=== PATIENT | male | born 1985 | race Caucasian/White ===

== ENCOUNTER 2023-04-20 22:07 | Inpatient (IN) | payer MEDICAID, OTHER, SELFPAY ==
[2023-04-20 16:45] VITALS: BMI 34.4
--- NOTE | 2023-04-20 16:46 | ED.GENMED ---
History of Present Illness
General
Chief Complaint: Skin Problem
Source: patient
Exam Limitations: none
Time Seen by Provider: 04/20/23 16:36
Travel History
Have you had any contact with someone who has COVID-19?: No
Do you have any symptoms of coronavirus? Fever > 100 degrees, chills, cough, shortness of breath, sore throat, loss of taste or smell, muscle aches, or headache?: No
History of Present Illness
History of Present Illness:
See MDM
Past History
Past History
ED Past Medical History: None
ED Past Surgical History: None
Social History
Tobacco: Non-smoker
Alcohol: None
Phy Exam
Physical Exam
Physical Exam:
See MDM
Course
Orders/Labs/Results
Orders:
Orders
04/20/23 16:45
Vancomycin [Vancocin] 2,000 mg 0.9% Sodium Chloride 500 ml [Nss] 500 ml IV NOW
US Periph Venous LOWER Ext RT Urgent
Comment:
Reason For Exam: Right calf pain and swelling
04/20/23 18:09
Complete Blood Count/With Diff Urgent
Comprehensive Metabolic Panel Urgent
Lactic Acid Q4H
Comment: CANCEL 2nd LACTIC ACID IF 1st LACTIC ACID IS LESS THAN 2
Blood Culture Q30M
DARRELL Source: Blood/Venous
Specimen Description:
Blood Culture Q30M
DARRELL Source: Blood/Venous
Specimen Description:
04/20/23 19:34
Ketorolac [Toradol] 30 mg IV NOW STA
Morphine Sulfate 4 mg IV NOW STA
04/20/23 20:45
Lactic Acid Q4H
Comment: CANCEL 2nd LACTIC ACID IF 1st LACTIC ACID IS LESS THAN 2
Abnormal Lab Results
04/20/23
18:09
WBC 11.5 H 10^3/uL
(4.8-10.8)
RBC 3.91 L 10^6/uL
(4.70-6.10)
Hgb 10.9 L g/dL
(13.0-18.0)
Hct 32.1 L %
(39.0-52.0)
Absolute Neuts (auto) 9.5 H 10^3/uL
(1.4-6.5)
Absolute Lymphs (auto) 0.8 L 10^3/uL
(1.2-3.4)
Absolute Monos (auto) 1.1 H 10^3/uL
(0.1-0.6)
Neutrophils % 82.7 H %
(42.2-75.2)
Lymphocytes % 7.3 L %
(20.5-51.1)
Monocytes % 9.5 H %
(1.7-9.3)
Sodium 134 L mmol/L
(135-145)
Chloride 96 L mmol/L
(98-107)
Glucose 103 H mg/dl
(70-99)
Alkaline Phosphatase 128 H U/L
(38-126)
04/20/23 18:09
04/20/23 18:09
Vital Signs
Initial and Last Documented VS:
Initial Vital Signs
Temp Pulse Resp Pulse Ox
98.6 F 99 18 97
04/20/23 16:38 04/20/23 16:38 04/20/23 16:38 04/20/23 16:38
Last Documented Vital Signs
Temp Pulse Resp Pulse Ox
98.6 F 99 18 97
04/20/23 16:38 04/20/23 16:38 04/20/23 16:38 04/20/23 16:38
MDM/Problems Addressed
Differential Diagnosis Includes:
HPI and MDM Narrative:
37-year-old male presenting with 3 days of worsening right leg swelling. Patient has a history of cellulitis that has required IV vancomycin in the past. He is from [facility]. He denies any trauma or injections in his
leg. He denies fever
On exam, there is significant cellulitis to right leg. Calf is tender. Distal extremity neurovascular intact. Will start IV vancomycin ultrasound rule out DVT
Physical exam
General: Well appearing and non-toxic
HEENT: protecting airway
Neck: appears supple
CV: No evidence of cyanosis
Resp: No accessory muscle use
Abd: Non-distended
Extremities: Circumferential swelling to right leg along tibia and calf. Pulses intact
Neuro: alert
Psych: Normal affect
Skin: Intact
Problems Addressed including Acute and Chronic Conditions affecting care:
1 cellulitis
Acuity: acute
Prognosis: unstable
Details: Patient started on IV vancomycin. Will obtain ultrasound rule DVT
Updates
Differential Diagnosis (but not limited to): Cellulitis, DVT
Testing considered: Soft tissue x-ray looking for gas
Drug therapy (if applicable): OTC meds, please see d/c instruction regarding Rx drugs
Amount and/or Complexity of Data Reviewed
Clinical info obtained from: Patient
External data reviewed: N/A
Labs I independently reviewed (but not limited to): Leukocystosos
Radiology: Ultrasound report reviewed
Pulse Ox: not hypoxic
EKG independently reviewed: N/A
Senior Power Scheduler: N/A
Critical Care: N/A
Risk of Complication:
Social Determinants of health: Good social support
Discussed with other providers: Hospitalist
Escalation of Care includes Admit/Obs: Given the significant cellulitis in short duration, will start IV vancomycin and admit
Occasional wrong word or 'sound a like' substitutions may have occurred due to the inherent limitations of voice recognition software. Read the chart carefully and recognize, using context, where substitutions have occurred.
*Critical Care Note
Total Time (30-74mins, 75-104mins- exclusive of procedures): Not Applicable
ED Attending Note
-
Portions of this chart may have been created with voice recognition software.� Occasional wrong word or��sound alike� substitutions may have occurred due to the inherent limitations of voice recognition software.
Discharge Plan
Departure
Patient Disposition: Admit
Date of Disposition: 04/20/23
Time of Disposition: 19:39
Admit to: Med/Surg
Presentation/result/management discussed w/ accepting MD/DO: Hospitalist
Discharge Problem:
Cellulitis
Prescriptions:
No Action
clonidine HCl 0.1 mg Tablet
0.1 mg PO UD
Rx Instructions:
ON 04/20/23-04/23/23 TABLE 0.1MG TID THEN ON 04/24/23-04/25/23 TABL 0.1MG BID THEN ON 04/26/23-04/27/23 TAKE 0.05MG BID
ondansetron HCl [Zofran] 4 mg Tablet
4 mg PO TIDPRN PRN (Reason: NAUSEA)
loperamide 2 mg Tablet
2 mg PO TIDPRN PRN (Reason: DIARRHEA)
acetaminophen-codeine 300-30 mg Tablet
2 tab PO UD
Rx Instructions:
ON 04/20/23-04/22/23 TAKE 2 TABLETS TID THEN ON 04/23/23-04/24/23 TAKE 2 TABLETS BID THEN ON 04/25/23-04/26/23 TAKE 1 TABLET BID THEN ON 04/27/23 TAKE 1 TABLE HS
Referrals:
[facility] [Family Provider] -
Interventions
Interventions:
*Risk Screen - Suicide Last Done: 04/20/23 16:45
*General Assessment Last Done: 04/20/23 16:41
*Neglect/Abuse Screening Last Done: 04/20/23 16:41
*ED COVID-19 Vaccine History Last Done: 04/20/23 16:41
ED-Skin Assessment Last Done: 04/20/23 16:45
[2023-04-20 18:16] LABS: % Basophils 0.2 % (0-2); % Immature Granulocytes 0.3 % (0-0.5); % Lymphocytes 7.3 % (20.5-51.1); % Monocytes 9.5 % (1.7-9.3); % Neutrophils 82.7 % (42.2-75.2); Absolute Lymphocytes 0.8 10^3/uL (1.2-3.4); Absolute Monocytes 1.1 10^3/uL (0.1-0.6); Absolute Neutrophils 9.5 10^3/uL (1.4-6.5); Hematocrit 32.1 % (39.0-52.0); Hemoglobin 10.9 g/dL (13.0-18.0); Mean Corpuscular Hgb 27.9 pg (27.0-31.0); Mean Corpuscular Volume 82.1 fL (80.0-94.0); Mean Platelet Volume 9.8 fL (7.4-10.4); Nucleated Red Blood Cells % 0 % (-); Platelet Count 257 10^3/uL (130-400); Red Blood Cell Count 3.91 10^6/uL (4.70-6.10); Red Cell Dist. Width 13.5 % (11.5-14.5); White Blood Cell Count 11.5 10^3/uL (4.8-10.8)
[2023-04-20] MEDS: VANCOCIN 540 MG IV (18:24)
[2023-04-20 18:29] LABS: Lactic Acid 0.9 mmol/L (0.7-2.0)
[2023-04-20 18:31] LABS: ALT (SGPT) 26 U/L (0-50); AST (SGOT) 36 U/L (17-59); Albumin 3.8 g/dl (3.5-5.0); Alkaline Phosphatase 128 U/L (38-126); Blood Urea Nitrogen 15 mg/dl (9-20); Calcium 9.5 mg/dl (8.4-10.2); Carbon Dioxide 29 mmol/L (22-30); Chloride 96 mmol/L (98-107); Estimated Creatinine Clearance > 125 ml/min; Glucose 103 mg/dl (70-99); Potassium 3.9 mmol/L (3.5-5.1); Sodium 134 mmol/L (135-145); Total Bilirubin 0.6 mg/dl (0.2-1.3); Total Protein 6.9 g/dl (6.3-8.2); eGFR > 60.00
[2023-04-20] MEDS: MORPHINE SULFATE 4 MG IV (19:59)
[2023-04-20] MEDS: TORADOL 30 MG IV (19:59)
--- NOTE | 2023-04-20 20:49 | HPS.HSE ---
Family Physician
-
Family Physician: Facility [facility]
Chief Complaint
-
RLE Pain and Redness
History of Present Illness
Patient is a 37y M with PMH significant for substance abuse who presents to ED complaining of RLE pain, swelling and redness. Patient states that his symptoms started yesterday AM and were noted upon waking. He is not aware of any injury,
trauma, etc. Patient was en route to an Urgent Care today when he was pulled over by police and apprehended on an outstanding warrant, They brought him to the ED for evaluation.
Patient states that he has a prior history of LLE cellulitis and required IV antibiotics at that time.
In the ED, patient is diaphoretic and tremulous. He admits to daily use of intranasal heroin. About 8 bags daily on average. His last use was this AM.
Medical History
Past Medical History
Past Medical History: Reports Other
Additional Past Medical History:
Substance Abuse
Past Surgical History: Reports Other
Additional Past Surgical History:
Inguinal Hernia Repair
Left Tib-Fib ORIF with Hardware
Social History
Tobacco: Non-smoker
Alcohol: None
Drug: Other (Intranasal heroin - last used 04/20 AM.)
Family History
Family History: Other (Mother: Brain Cancer Father: Pancreatic Cancer)
Allergies / Home Medications
Allergies reflects when Allergies were last updated in [employer].
Home Medications with original date entered in [employer]
Allergy/Medication List:
Allergies
Allergy/AdvReac Type Severity Reaction Status Date / Time
Penicillins Allergy Intermediate Shortness Verified 04/20/23 16:47
of Breath
Home Medications
acetaminophen 300 mg-codeine 30 mg tablet 2 tab PO UD 04/20/23
clonidine HCl 0.1 mg tablet 0.1 mg PO UD 04/20/23
loperamide 2 mg tablet 2 mg PO TIDPRN PRN DIARRHEA 04/20/23
ondansetron HCl 4 mg tablet 4 mg PO TIDPRN PRN NAUSEA 04/20/23
Review of Systems
-
History Source: Patient
A 12 point ROS was completed and negative except as noted: Yes
Constitutional: Reports Fatigue and Chills; Denies Fever
EENT: Denies Sore Throat
Respiratory: Denies Cough or Trouble Breathing
Cardiac: Denies Chest Pain or Palpitations
Abdomen/GI: Reports Nausea; Denies Abdominal Pain, Vomiting, Diarrhea, Constipated, Bloody Stools or Black Stools
: Denies Dysuria, Frequency or Flank Pain
Musculoskeletal: Reports Muscle Pain; Denies Edema
Skin: Reports Other (RLE redness, pain, swelling.)
Neurological: Reports Headache; Denies Dizzy
Physical Exam
Vital Signs
Vital Signs
Temp Pulse Resp Pulse Ox
98.6 F 99 18 97
04/20/23 16:38 04/20/23 16:38 04/20/23 16:38 04/20/23 16:38
Physical Exam
General: Other (37y M in moderate distress due to chills, tremulousness, withdrawal symptoms.)
HEENT: Moist mucous membranes and PERRLA
Respiratory: Clear; No Wheezes, Rales or Rhonchi
Cardiac: S1/S2 and Regular Rhythm; No Murmur
GI: Soft, Non Tender, Non Distended and Normal Bowel Sounds
Musculoskeletal: No Clubbing, No Cyanosis, No Edema and Other (RLE erythema, induration and increased warmth from the ankle to the knee. Pos tenderness without open wound / fluctuance / etc.)
Neuro: AO x 3
Laboratory Results
-
04/20/23 18:09
04/20/23 18:09
Laboratory Results
Lactic Acid 0.9 mmol/L (0.7-2.0) 04/20/23 18:09
Total Bilirubin 0.6 mg/dl (0.2-1.3) 04/20/23 18:09
AST 36 U/L (17-59) 04/20/23 18:09
ALT 26 U/L (0-50) 04/20/23 18:09
Alkaline Phosphatase 128 U/L (38-126) H 04/20/23 18:09
Impression/Plan
-
A/P: Patient is a 37y M with PMH significant for substance abuse who presents to ED c/o RLE pain, swelling and redness for about 2 days.
RLE Cellulitis
- Admit for further evaluation and treatment.
- Patient reports prior h/o cellulitis requiring IV abx.
- US neg for DVT but does show inguinal adenopathy c/w infection.
- ? if skin changes / infection are related to drug use / potential for xylazine in the heroin.
- No open wounds appreciated at present.
- Continue IV abx with Vanco for now.
- Follow for clinical improvement and transition to PO meds when appropriate.
Opioid Withdrawal
- Patient with daily use of intranasal heroin amounting to about 8 bags daily.
- Last use was this AM.
- Patient did receive a single dose of morphine in the ED; however, he is clinically in acute withdrawal at present.
- Begin opioid withdrawal treatment protocol with COWS monitoring / buprenorphine dosing / etc.
- Supportive care medications.
Normocytic Anemia
- Unknown etiology.
- No reported gross blood loss per patient.
- Check anemia studies and follow for changes.
DVT Prophylaxis: Lovenox
Code Status: Full
[2023-04-20] MEDS: SUBUTEX SL (21:11)
[2023-04-20] MEDS: SUBUTEX 8 MG SL ×2 (21:36→22:44)
[2023-04-20] MEDS: ATIVAN 1 MG IV ×2 (21:39→22:33)
[2023-04-20 21:42] VITALS: BP 146/87
[2023-04-20 22:14] VITALS: BP 157/85; BMI 33.3
[2023-04-20] MEDS: NSS 1000 IV (22:33)
[2023-04-20 23:01] LABS: Reticulocyte Count 1.2 % (0.4-2.8)
--- NOTE | 2023-04-20 23:04 | PTCARENOTE ---
pt admitted from ED- pt is AAOx3- actively withdrawing from heroin, COWS score 10- PRN meds given per MAR. pt with tremors- restless, sweating. pt is cooperative with care. NSR/ST on the monitor. 98% RA. pt aware of the needs for a urine specimen-
urinal provided. IV fluids hung and infusing to right midline. two guards at bedside. pt oriented to room, call moore within reach, care ongoing.
[2023-04-20] MEDS: CATAPRES 0.100000000000000006 MG PO (23:10)
--- NOTE | 2023-04-20 23:10 | PHA.VAN.IN ---
Assessment
- Assessment
Renal Function: Unknown baseline
Maximum Temperature: 99.4
AUC Dosing Plan
- Dosing Variables
Dosing Weight (kg): 114
Dosing CrCl (ml/min): 125
Vd coefficient (L/kg): 0.6
- Empiric Dosing
Initial / Loading Dose: 2000mg 04/20 18:24
Maintenance Regimen: 1250 mg q8h
Estimated AUC (mcg*h/mL): 548
Estimated Peak (mcg*h/mL): 31.6
Estimated Trough (mcg/ml): 15.6
Estimated Half Life (H): 6.4
- Monitoring
No levels ordered at this time: consider in the next couple days
Pharmacokinetics Vancomycin I
- -
Patient Age: 37
Patient Sex: Male
Vancomycin Day #: 1
Indication: Skin And Soft Tissue
Requesting Provider: Dr Ji
Pertinent Antimicrobial Allergies:
Penicillins Allergy (Intermediate, Verified 04/20/23 16:47) Shortness of Breath
Height / Weight:
Height 6 ft 1 in
Actual Weight 114.4 kg
Pertinent Past Medical History: h/o ingesting (snorting) ilicit opioids and xylazine; BMI 33
- Vital Signs / Lab Results
Temp Pulse Resp BP Pulse Ox
99.4 F 94 14 157/85 98
04/20/23 22:15 04/20/23 22:45 04/20/23 22:45 04/20/23 22:14 04/20/23 22:55
Lab Results - Hematology
04/20/23
18:09
WBC 11.5 H
Lab Results - Chemistry
04/20/23
18:09
BUN 15
Creatinine 0.7
Estimated Creat Clear > 125
Albumin 3.8
04/20/23 04/20/23
18:09 22:21
Lactic Acid 0.9 Cancelled
[2023-04-20 23:32] LABS: Creatine Phosphokinase 268 U/L (55-170); Iron 29 ug/dl (49-181)
[2023-04-20 23:41] LABS: Percent Saturation 9 % (20-50); Total Iron Binding Capacity 313 ug/dl (261-462)
[2023-04-21] VITALS (12 sets, daily range): BP systolic 132–171; BP diastolic 70–101
[2023-04-21 00:44] LABS: Vitamin B12 633 pg/ml (239-931)
[2023-04-21] MEDS: ATIVAN 1 MG IV ×4 (03:06→23:32)
[2023-04-21] MEDS: TORADOL 15 MG IV (03:10)
[2023-04-21] MEDS: NSS 1000 IV ×2 (05:28→14:25)
[2023-04-21] MEDS: VANCOCIN 275 MG IV ×3 (05:28→22:32)
[2023-04-21] MEDS: CATAPRES 0.100000000000000006 MG PO ×3 (05:28→17:19)
[2023-04-21] MEDS: SUBUTEX 8 MG SL (05:33)
[2023-04-21 05:45] LABS: Hematocrit 34.2 % (39.0-52.0); Hemoglobin 11.4 g/dL (13.0-18.0); Mean Corp Hgb Conc. 33.3 g/dL (33.0-37.0); Mean Corpuscular Hgb 27.8 pg (27.0-31.0); Mean Corpuscular Volume 83.4 fL (80.0-94.0); Mean Platelet Volume 10.4 fL (7.4-10.4); Platelet Count 283 10^3/uL (130-400); Red Cell Dist. Width 13.4 % (11.5-14.5); White Blood Cell Count 9.7 10^3/uL (4.8-10.8)
[2023-04-21 06:05] LABS: ALT (SGPT) 29 U/L (0-50); AST (SGOT) 44 U/L (17-59); Albumin 3.9 g/dl (3.5-5.0); Alkaline Phosphatase 130 U/L (38-126); Blood Urea Nitrogen 16 mg/dl (9-20); Calcium 9.1 mg/dl (8.4-10.2); Carbon Dioxide 24 mmol/L (22-30); Chloride 103 mmol/L (98-107); Direct Bilirubin 0.5 mg/dl (0.0-0.4); Estimated Creatinine Clearance > 125 ml/min; Glucose 102 mg/dl (70-99); Potassium 3.7 mmol/L (3.5-5.1); Sodium 135 mmol/L (135-145); Total Bilirubin 0.7 mg/dl (0.2-1.3); Total Protein 6.9 g/dl (6.3-8.2); eGFR > 60.00
--- NOTE | 2023-04-21 06:10 | PTCARENOTE ---
pt with increasing COWS score overnight- 10-12. given PRN meds. pt with increasing discomfort to right leg- given IV toradol, pt noted to be sleeping after administration. care ongoing.
--- NOTE | 2023-04-21 08:26 | PHA.VAN.FU ---
Vancomycin Assessment / Plan
- Assessment
Renal Function: Stable
WBC's are: Trending Down
In the past 24 hrs, patient has been: Afebrile
- Dosing Plan
Continue: 1250MG Q8H
- Monitoring Plan
No level(s) ordered at this time: CONSIDER FOR TOMORROW
- Follow Up
Pharmacy will continue to follow.
Vancomycin Follow UP
- -
Patient Age: 37
Patient Sex: Male
Vancomycin Day #: 2
Indication: Skin And Soft Tissue
Requesting Provider: Dr Ji
Pertinent Antimicrobial Allergies:
Penicillins Allergy (Intermediate, Verified 04/20/23 16:47) Shortness of Breath
Height / Weight:
Height 6 ft 1 in
Actual Weight 114.4 kg
Pertinent Past Medical History: h/o ingesting (snorting) ilicit opioids and xylazine; BMI 33
- Vital Signs / Lab Results
Temp Pulse Resp BP Pulse Ox
98.2 F 67 16 155/98 97
04/21/23 07:46 04/21/23 06:00 04/21/23 06:00 04/21/23 06:00 04/21/23 00:04
Lab Results - Hematology
04/20/23 04/21/23
18:09 05:27
WBC 11.5 H 9.7
Lab Results - Chemistry
04/20/23 04/21/23
18:09 05:27
BUN 15 16
Creatinine 0.7 0.8
Estimated Creat Clear > 125 > 125
Albumin 3.8 3.9
04/20/23 04/20/23
18:09 22:21
Lactic Acid 0.9 Cancelled
[2023-04-21] MEDS: ZOFRAN 4 MG IV ×3 (09:10→23:34)
--- NOTE | 2023-04-21 12:35 | PTCARENOTE ---
Pt incontinent of large amount of loose stool x2. Hygiene care provided. Pt states that when he is asleep he does not know he has to go. vital signs stable. Refuses to keep pulse ox sensor on. SpO2 has been 98% on RA during spot checks.
--- NOTE | 2023-04-21 13:50 | W.PN.HOSP.TC ---
Today's Communication/Plan
-
Continue IV abx.
Eval leg daily for improvement/worsening
Assessment / Plan
Assessment / Plan
37y M with PMH significant for substance abuse who presents to ED c/o RLE pain, swelling and redness for about 2 days.
1. RLE Cellulitis - continues
�- Patient reports prior h/o cellulitis requiring IV abx.
�- US neg for DVT but does show inguinal adenopathy c/w infection.
�- skin changes / infection are related to drug use / there is potential for xylazine in the heroin.
�- No open wounds appreciated at present.
� - Continue IV abx with Vanco for now.
� - Follow for clinical improvement and transition to PO meds when appropriate.
2. Opioid Withdrawal - significant issue right now
�- Patient with daily use of intranasal heroin amounting to about 8 bags daily.
�- Last use was yesterday AM.
�- Patient did receive a single dose of morphine in the ED; however, he is clinically in acute withdrawal at present.
� - Begin opioid withdrawal treatment protocol with COWS monitoring / buprenorphine dosing /
� - Supportive care medications.
3. Normocytic Anemia
�- Unknown etiology.
�- No reported gross blood loss per patient.
� - follow up anemia studies.
DVT Prophylaxis:� Lovenox
Code Status:� Full
Anticipated Discharge: > 48 hours
Subjective/Interval History
-
Date of Service: April 21, 2023
states: 'Everything feels bad'
Objective Data
-
Labs:
Laboratory Results
04/21/23
05:27
WBC 9.7
Hgb 11.4 L
Hct 34.2 L
Plt Count 283
Sodium 135
Potassium 3.7
Chloride 103
Carbon Dioxide 24
BUN 16
Creatinine 0.8
Glucose 102 H
Calcium 9.1
Total Bilirubin 0.7
AST 44
ALT 29
Alkaline Phosphatase 130 H
Vital Signs:
Vital Signs
Temp Pulse Resp BP Pulse Ox
99.6 F 76 20 144/92 98
04/21/23 11:25 04/21/23 12:13 04/21/23 12:03 04/21/23 12:13 04/21/23 11:20
I&O
04/20/23 04/21/23 04/22/23
06:59 06:59 06:59
Intake Total 1275 / 1275
Balance 1275 / 1275
Review of Systems
-
History Source: Patient (sleeping, not very conversant.)
All other systems: Reviewed and negative
Physical Exam
-
General: Well Developed, Well Nourished and Obese
HEENT: Normocephalic, Moist Mucous Membranes, Nose Appears Normal and Ears Appear Normal
Respiratory: Clear to Auscultation
Cardiac: Regular Rhythm and S1/S2
GI: Soft, Nontender and Nondistended
Musculoskeletal: No Clubbing, No Cyanosis, Edema, Left Upper Extrem and Edema, Right Lower Extrem
Skin: Warm, Dry and Rash (red LE)
Neuro: Awake
Psych: Calm
Data Reviewed
-
Labs: Labs Reviewed by me
[2023-04-21] MEDS: LOVENOX 40 MG SC (17:19)
[2023-04-21] MEDS: TYLENOL 650 MG PO (20:16)
[2023-04-21] MEDS: ZANAFLEX 2 MG PO (20:20)
--- NOTE | 2023-04-21 23:30 | PTCARENOTE ---
report received. pt aaox3 but lethargic. nsr. vss. ivf infusing. cows 14. ativan given and zofran given for w/d symptoms. vanco infusing. correction officers present. pt shackled to bed. Will monitor.
[2023-04-21] MEDS: CATAPRES PO (23:38)
[2023-04-22] VITALS (8 sets, daily range): BP systolic 133–161; BP diastolic 52–100
[2023-04-22] MEDS: NSS IV (03:43)
[2023-04-22] MEDS: NSS 1000 IV (03:44)
[2023-04-22 04:05] LABS: Hematocrit 32.2 % (39.0-52.0); Hemoglobin 10.8 g/dL (13.0-18.0); Mean Corp Hgb Conc. 33.5 g/dL (33.0-37.0); Mean Corpuscular Hgb 28.1 pg (27.0-31.0); Mean Corpuscular Volume 83.6 fL (80.0-94.0); Mean Platelet Volume 10.7 fL (7.4-10.4); Platelet Count 262 10^3/uL (130-400); Red Blood Cell Count 3.85 10^6/uL (4.70-6.10); Red Cell Dist. Width 13.2 % (11.5-14.5); White Blood Cell Count 11.8 10^3/uL (4.8-10.8)
[2023-04-22 04:12] LABS: Blood Urea Nitrogen 17 mg/dl (9-20); Calcium 8.4 mg/dl (8.4-10.2); Carbon Dioxide 24 mmol/L (22-30); Chloride 100 mmol/L (98-107); Estimated Creatinine Clearance > 125 ml/min; Glucose 105 mg/dl (70-99); Potassium 3.2 mmol/L (3.5-5.1); Sodium 134 mmol/L (135-145); eGFR > 60.00
[2023-04-22] MEDS: CATAPRES PO ×3 (06:13→17:04)
[2023-04-22] MEDS: VANCOCIN 275 MG IV ×2 (06:13→14:40)
[2023-04-22] MEDS: SUBUTEX 16 MG SL (06:19)
[2023-04-22] MEDS: LR 1000 IV (10:25)
[2023-04-22] MEDS: KCL ELIXIR 40 MEQ PO (10:25)
[2023-04-22] MEDS: ZOFRAN 4 MG IV ×2 (10:26→20:41)
--- NOTE | 2023-04-22 15:45 | CM ---
Patient from [facility] with Dx RLE Cellulitis, Opioid Withdrawal, Normocytic Anemia. COWS. Receiving Subutex, IV cefazolin.
CM continuing to follow for d/c needs.
The nurse will need to call report at discharge to [facility] Nurse at [phone], fax [phone].
Plan return to [facility] with guards when medically ready.
--- NOTE | 2023-04-22 15:46 | W.PN.HOSP.TC ---
Today's Communication/Plan
-
switch to cefazolin
supportive care for withdrawal
Assessment / Plan
Assessment / Plan
37y M with PMH significant for substance abuse who presents to ED c/o RLE pain, swelling and redness for about 2 days.
1. RLE Cellulitis - continues
�- Patient reports prior h/o cellulitis requiring IV abx.
�- US neg for DVT but does show inguinal adenopathy c/w infection.
�- denies IV drug abuse.
�- No open wounds appreciated at present.
�-Switch to Cefazolin - monitor
2. Opioid Withdrawal - significant issue right now
�- Patient with daily use of intranasal heroin amounting to about 8 bags daily.
�- Patient did receive a single dose of morphine in the ED; however, he is clinically in acute withdrawal at present.
�- Begin opioid withdrawal treatment protocol with COWS monitoring / buprenorphine dosing /
�- Supportive care medications.
3. Normocytic Anemia
�- Unknown etiology.
�- No reported gross blood loss per patient.
�- follow up anemia studies.
#Hyponatremia, mild
-monitor
#Hypokalemia
-monitor and replete
DVT Prophylaxis:� Lovenox
Code Status:� Full
Anticipated Discharge: 24 - 48 hours
Subjective/Interval History
-
Date of Service: April 22, 2023
cellulitis improving
withdrawing
Objective Data
-
Labs:
Laboratory Results
04/22/23
03:36
WBC 11.8 H
Hgb 10.8 L
Hct 32.2 L
Plt Count 262
Sodium 134 L
Potassium 3.2 L
Chloride 100
Carbon Dioxide 24
BUN 17
Creatinine 0.6 L
Glucose 105 H
Calcium 8.4
Vital Signs:
Vital Signs
Temp Pulse Resp BP Pulse Ox
98.6 F 63 17 147/89 88
04/22/23 11:20 04/22/23 12:00 04/22/23 12:00 04/22/23 12:00 04/22/23 06:00
I&O
04/21/23 04/22/23 04/23/23
06:59 06:59 06:59
Intake Total 1275 / 1275 1000 / 1000
Output Total 650 / 650 1000 / 1000
Balance 1275 / 1275 -650 / -650 0 / 0
Review of Systems
-
History Source: Patient (sleeping, not very conversant.)
All other systems: Reviewed and negative
Physical Exam
-
General: Well Developed, Well Nourished and Obese
HEENT: Normocephalic, Moist Mucous Membranes, Nose Appears Normal and Ears Appear Normal
Respiratory: Clear to Auscultation
Cardiac: Regular Rhythm and S1/S2
GI: Soft, Nontender and Nondistended
Musculoskeletal: No Clubbing, No Cyanosis, Edema, Left Upper Extrem and Edema, Right Lower Extrem
Skin: Warm, Dry and Rash (red LE)
Neuro: Awake
Psych: Calm
Data Reviewed
-
Labs: Labs Reviewed by me
[2023-04-22] MEDS: LOVENOX SC ×2 (17:05→17:09)
--- NOTE | 2023-04-22 17:32 | PTCARENOTE ---
pt being transferred to room 330 med surg. report given to Christine. pt refused catapress and lovenox. explained risk of dvt if pt doesnt take lovenox.
[2023-04-22] MEDS: ANCEF 10 IV (21:23)
[2023-04-22] MEDS: CATAPRES 0.100000000000000006 MG PO (23:22)
[2023-04-23 05:11] LABS: Hematocrit 32.5 % (39.0-52.0); Hemoglobin 11.3 g/dL (13.0-18.0); Mean Corp Hgb Conc. 34.8 g/dL (33.0-37.0); Mean Corpuscular Hgb 28.1 pg (27.0-31.0); Mean Corpuscular Volume 80.8 fL (80.0-94.0); Mean Platelet Volume 10.2 fL (7.4-10.4); Platelet Count 291 10^3/uL (130-400); Red Blood Cell Count 4.02 10^6/uL (4.70-6.10); Red Cell Dist. Width 13.2 % (11.5-14.5); White Blood Cell Count 14.9 10^3/uL (4.8-10.8)
[2023-04-23 05:41] LABS: Blood Urea Nitrogen 15 mg/dl (9-20); Carbon Dioxide 28 mmol/L (22-30); Chloride 96 mmol/L (98-107); Estimated Creatinine Clearance > 125 ml/min; Glucose 103 mg/dl (70-99); Potassium 3.5 mmol/L (3.5-5.1); Sodium 133 mmol/L (135-145); eGFR > 60.00
[2023-04-23] MEDS: ANCEF 10 IV ×3 (06:27→21:06)
[2023-04-23] MEDS: CATAPRES 0.100000000000000006 MG PO ×4 (06:33→23:09)
[2023-04-23 07:21] VITALS: BP 163/99
[2023-04-23] MEDS: SUBUTEX 16 MG SL (07:49)
--- NOTE | 2023-04-23 13:14 | PN.CDI ---
CDI
- -
CDI:
Physician Documentation Request
Admit Date: 04/20/23 22:07
Dear Doctor Paulie,
Please review the following and provide your response in the progress notes.
Clinical Indicators:
Pt admitted with RLE cellulitis/ Opioid Withdrawal
Documented per H&P, ' Reports Fatigue and Chills; Denies Fever...'
On admission HR 112, RR 27 , Tmax 100.1
04/20/23 04/22/23 04/23/23
18:09 03:36 04:53
WBC 11.5 H 11.8 H 14.9 H
Please clarify which of the following most accurately describes the status of the patient's infection:
Sepsis-POA
- Systemic manifestations of infection, with 2 or more SIRS criteria which include:
- Fever >100.4 degrees F or hypothermia < 96.8 degrees F
- Leukocytosis - WBC > 12,000 or leukopenia - WBC < 4,000 or > 10% bands
- Tachycardia > 90 beats per minute
- Tachypnea - RR > 20 breaths per minute or PaCO2 , 32mmHg
Source: Merck Manual 2012
Sepsis Not POA
RLE cellulitis only , Without Systemic Illness
Other
Use of terms such as suspected, likely, concern for, or probable (associated with a specific diagnosis that is being evaluated, monitored, or treated as if it exists) are acceptable and can be coded in the inpatient setting, when documented at the
time of discharge.
Thank you,
Trudy Alexander RN
CDI Specialist
[facility]
Please use your independent medical judgment in providing your response.
--- NOTE | 2023-04-23 13:53 | W.PN.HOSP.TC ---
Today's Communication/Plan
-
abx
supportive care
f/u wbc, fever curve
Assessment / Plan
Assessment / Plan
37y M with PMH significant for substance abuse who presents to ED c/o RLE pain, swelling and redness for about 2 days.
# RLE Cellulitis - continues
�- Patient reports prior h/o cellulitis requiring IV abx.
�- US neg for DVT but does show inguinal adenopathy c/w infection.
�- denies IV drug abuse.
�- No open wounds appreciated at present.
�-Switch to Cefazolin - monitor
#Leukocytosis
� Most likely reactive secondary to withdrawal, doubt due to cellulitis as cellulitis appears to be improving on antibiotics
� Continue to monitor fever, WBC
# Opioid Withdrawal - significant issue right now
�- Patient with daily use of intranasal heroin amounting to about 8 bags daily.
�- Patient did receive a single dose of morphine in the ED; however, he is clinically in acute withdrawal at present.
�- Begin opioid withdrawal treatment protocol with COWS monitoring / buprenorphine dosing /
�- Supportive care medications.
# Normocytic Anemia
�- Unknown etiology.
�- No reported gross blood loss per patient.
�- follow up anemia studies.
#Hyponatremia, mild
-monitor
#Hypokalemia
-monitor and replete
DVT Prophylaxis:� Lovenox
Code Status:� Full
Anticipated Discharge: Within 24 hours
Subjective/Interval History
-
Date of Service: April 23, 2023
Ongoing improvement cellulitis, no acute events overnight
Objective Data
-
Labs:
Laboratory Results
04/23/23
04:53
WBC 14.9 H
Hgb 11.3 L
Hct 32.5 L
Plt Count 291
Sodium 133 L
Potassium 3.5
Chloride 96 L
Carbon Dioxide 28
BUN 15
Creatinine 0.7
Glucose 103 H
Calcium 9.0
Vital Signs:
Vital Signs
Temp Pulse Resp BP Pulse Ox
97.2 F 66 16 161/96 96
04/23/23 07:21 04/23/23 07:21 04/23/23 07:21 04/23/23 13:00 04/23/23 10:33
I&O
04/22/23 04/23/23 04/24/23
06:59 06:59 06:59
Intake Total 2230 / 2230
Output Total 650 / 650 2350 / 2350
Balance -650 / -650 -120 / -120
Review of Systems
-
History Source: Patient (sleeping, not very conversant.)
All other systems: Reviewed and negative
Data Reviewed
-
Labs: Labs Reviewed by me
[2023-04-23 15:53] VITALS: BP 146/89
[2023-04-23] MEDS: LOVENOX SC (18:04)
[2023-04-23 23:06] VITALS: BP 149/90
[2023-04-24 05:20] LABS: Hematocrit 32.6 % (39.0-52.0); Hemoglobin 11.1 g/dL (13.0-18.0); Mean Corpuscular Hgb 27.3 pg (27.0-31.0); Mean Corpuscular Volume 80.3 fL (80.0-94.0); Platelet Count 310 10^3/uL (130-400); Red Blood Cell Count 4.06 10^6/uL (4.70-6.10); Red Cell Dist. Width 13.2 % (11.5-14.5); White Blood Cell Count 15.7 10^3/uL (4.8-10.8)
[2023-04-24] MEDS: ANCEF 10 IV (05:21)
[2023-04-24] MEDS: CATAPRES PO ×3 (05:28→17:32)
[2023-04-24 05:58] LABS: Blood Urea Nitrogen 21 mg/dl (9-20); Calcium 8.9 mg/dl (8.4-10.2); Carbon Dioxide 27 mmol/L (22-30); Chloride 95 mmol/L (98-107); Estimated Creatinine Clearance > 125 ml/min; Glucose 98 mg/dl (70-99); Potassium 3.5 mmol/L (3.5-5.1); Sodium 133 mmol/L (135-145); eGFR > 60.00
[2023-04-24 07:00] VITALS: BP 157/94
[2023-04-24] MEDS: SUBUTEX 16 MG SL (08:39)
--- NOTE | 2023-04-24 11:40 | W.PN.HOSP.TC ---
Addendum entered and electronically signed by Anatoliy Apodaca MD 04/26/23 16:00:
Sepsis-POA
Addendum entered and electronically signed by Anatoliy Apodaca MD 04/24/23 17:39:
Keflex 500mg qid*
[id number]
Original Note:
Today's Communication/Plan
-
Keflex 500 mg 4 times daily to complete 10-day course total, additional 8 days should be provided
Continue Subutex, as per physician outpatient
Clonidine weaning
Tizanidine as needed
Assessment / Plan
Assessment / Plan
37y M with PMH significant for substance abuse who presents to ED c/o RLE pain, swelling and redness for about 2 days.
# RLE Cellulitis -improving
�- Patient reports prior h/o cellulitis requiring IV abx.
�- US neg for DVT but does show inguinal adenopathy c/w infection.
�- denies IV drug abuse.
�- No open wounds appreciated at present.
�-Switch to Cefazolin - monitor�improving, switch to Keflex 5 mg 4 times daily for additional 8 days to complete 10-day course of antibiotics
#Leukocytosis
� Most likely reactive secondary to withdrawal, doubt due to cellulitis as cellulitis appears to be improving on antibiotics
� Continue to monitor fever, WBC - F/u CBC in 3 days
# Opioid Withdrawal - significant issue right now
�- Patient with daily use of intranasal heroin amounting to about 8 bags daily.
�- Patient did receive a single dose of morphine in the ED; however, .
�- Begin opioid withdrawal treatment protocol with COWS monitoring / buprenorphine dosing - cont Subutex outpatient
�- Supportive care medications.
-tinazidine, clonidine
# Normocytic Anemia
�- Unknown etiology.
�- No reported gross blood loss per patient.
�- follow up anemia studies.
#Hypertension
-2/2 to withdrawal
-ctm
#Hyponatremia, mild
-monitor
-f/u bmp outpatient
#Hypokalemia
-monitor and replete
DVT Prophylaxis:� Lovenox
Code Status:� Full
More than 30 minutes spent in discharge including
Final examination of the patient
Summarizing hospital stay
Instructions for continuing care to all relevant caregivers
Preparation of discharge records, prescriptions, and referral forms
Total time spent (35 in minutes):
Anticipated Discharge: Today
Subjective/Interval History
-
Date of Service: April 24, 2023
Cellulitis improving
Objective Data
-
Labs:
Laboratory Results
04/24/23
04:53
WBC 15.7 H
Hgb 11.1 L
Hct 32.6 L
Plt Count 310
Sodium 133 L
Potassium 3.5
Chloride 95 L
Carbon Dioxide 27
BUN 21 H
Creatinine 0.6 L
Glucose 98
Calcium 8.9
Vital Signs:
Vital Signs
Temp Pulse Resp BP Pulse Ox
99.2 F 72 17 157/94 97
04/24/23 07:00 04/24/23 07:00 04/24/23 07:00 04/24/23 07:00 04/24/23 07:00
I&O
04/23/23 04/24/23 04/25/23
06:59 06:59 06:59
Intake Total 2230 / 2230 1200 / 1200
Output Total 2350 / 2350 2650 / 2650
Balance -120 / -120 -1450 / -1450
Review of Systems
-
History Source: Patient ( not very conversant.)
All other systems: Not reviewed unless documented
Data Reviewed
-
Ultrasound: Image personally visualized and interpreted and Report Reviewed by me
Labs: Labs Reviewed by me
--- NOTE | 2023-04-24 11:45 | W.DS.TRANS ---
DC Summary - Minister Assistant
-
Discharge Instructions:
Discharge Diagnosis/Procedures RLE Cellulitis
Activity As tolerated
Blood Work cbc in 3 days with pcp to ensure improving WBC (
15K today - thought to be reactive due to
withdrawal symptoms)
BMP in 3-5 days - monitoring Na levels (133 here
)
Instructions: Cellulitis (Skin Infection), Adult (DC)
Stand-Alone Forms:
Changes to Home Medications: Yes
Discharge Medications:
DC Medications w/original date entered in [facility]
clonidine HCl 0.1 mg tablet 0.1 mg PO UD Heart Disease/Condition 04/20/23
loperamide 2 mg tablet 2 mg PO TIDPRN PRN DIARRHEA 04/20/23
ondansetron HCl 4 mg tablet 4 mg PO TIDPRN PRN NAUSEA 04/20/23
acetaminophen 325 mg tablet 650 mg PO Q4HPRN PRN Mild Pain / Temp > 101 #0 tabs 04/24/23
buprenorphine HCl 8 mg sublingual tablet 16 mg sublingual DAILY #0 tabs 04/24/23
cephalexin 500 mg capsule 500 mg PO QID 8 days #32 caps 04/24/23
tizanidine 2 mg tablet 2 mg PO Q6HPRN PRN restlessness,agitation,anxiety #0 tabs 04/24/23
Home Medication Changes
buprenorphine HCl 8 mg sublingual tablet 16 mg sublingual DAILY #0 tabs 04/24/23
cephalexin 500 mg capsule 500 mg PO QID 8 days #32 caps 04/24/23
tizanidine 2 mg tablet 2 mg PO Q6HPRN PRN restlessness,agitation,anxiety #0 tabs 04/24/23
Pending Results: No
--- NOTE | 2023-04-24 11:52 | CM ---
Pt medically ready to return to [facility]
Scott at [facility] made aware
Report - [facility] Nurse at [phone]
.
[2023-04-24 15:00] VITALS: BP 152/96
[2023-04-24] MEDS: ANCEF IV (15:15)
[2023-04-24] MEDS: LOVENOX SC (17:32)
== END 2023-04-24 19:11 | disposition home or self-care (01) | DRG 872 ==
LOC: 3 WEST ACU 22:07
PROVIDERS: Internal Medicine; ADMITTING PHYSICIAN Hospitalist; ATTENDING PHYSICIAN Internal Medicine; EMERGENCY PHYSICIAN Student in an Organized Health Care Education/Training Program
DX: A41.9 Sepsis, unspecified organism (principal); F11.23 Opioid dependence with withdrawal; L03.115 Cellulitis of right lower limb; E87.1 Hypo-osmolality and hyponatremia; D64.9 Anemia, unspecified; E87.6 Hypokalemia; I10 Essential (primary) hypertension
CPT/HCPCS: 80048; 80053; 82248; 82550; 82607; 82728; 83540; 83550; 83605; 85025; 85027; 85045; 87040; 93005; 93971; 96365; 96366; 96375; 99284

== ENCOUNTER 2023-04-24 20:51 | Emergency (ER) | payer OTHER, SELFPAY ==
[2023-04-24 20:56] VITALS: BP 133/97
--- NOTE | 2023-04-24 23:06 | ED.GENMED ---
History of Present Illness
General
Chief Complaint: Blood Pressure Problem
Source: patient, records (Limited records from [facility] and [facility] guards accompanying the patient.) and previous hospital records (Recent hospitalization April 20 2 today, April 24 for treatment of right lower
extremity cellulitis, opioid withdrawal.)
Time Seen by Provider: 04/24/23 22:11
Nursing documentation reviewed up to this point in time: agreed with
Travel History
Have you had any contact with someone who has COVID-19?: No
Do you have any symptoms of coronavirus? Fever > 100 degrees, chills, cough, shortness of breath, sore throat, loss of taste or smell, muscle aches, or headache?: No
History of Present Illness
History of Present Illness:
This is a 37-year-old gentleman with history of opioid use disorder, snorts heroin and recent hospitalization April 20 until this afternoon April 24 for treatment of right lower extremity cellulitis. Cellulitis improved with IV Ancef and he was
transition to Keflex to be continued for an additional 8 days. He was also treated for opioid withdrawal with Subutex. He was noted to have intermittent hypertension as well as intermittent nausea related to opioid withdrawal symptomatology
treated with as needed doses of Zofran and clonidine. Overall patient feeling improved and was discharged this afternoon back to [facility], arrived early evening and upon arrival [facility] nursing staff concerned for elevated
blood pressure of 148/120, elevated heart rate of 132 and the nurse was concerned with rising white blood cell count at 11.9 on admission had trended up to 15 earlier today. She sent the patient back to the ED for further evaluation.
The patient offers no complaints, overall feeling improved admits that his right leg redness and pain have markedly improved. He does admit to intermittent nausea but has had no vomiting.
He is unsure why he is sent back to the hospital.
He does admit to significant improvement in his withdrawal symptoms with Subutex.
BP upon arrival 133/97 with heart rate of 99, oral temperature 100 �F.
Upon recheck during my initial evaluation oral temperature 99.7 �F, blood pressure 132/96 and heart rate 88. Patient admits to brief mild nausea otherwise feeling well.
Past History
Past History
ED Past Medical History: Other (Substance use disorder, cellulitis right lower extremity)
ED Past Surgical History: Orthopedic (Left foot surgery 2019) and Other (Hernia repair times 04/2017)
Social History
Tobacco: Non-smoker
Alcohol: None
Drug: Narcotics (Snorts heroin)
Personal: Single
Living: [facility] (Currently resides in [facility])
Employment: Not employed
Family History
Family History: Other (Noncontributory)
Phy Exam
Physical Exam
Physical Exam:
GENERAL: 37-year-old gentleman appears his stated age, awake and alert, pleasant, appears in no acute distress. Accompanied by 2 [facility] guards.
EYE: pupils equal and reactive. anicteric
NECK: Supple, nontender, no meningismus, no significant adenopathy.
ENT: oral mucosa is moist. No rhinorrhea.
CARDIAC: Regular rate and rhythm. no murmur.
LUNGS: Clear breath sounds bilaterally, no acute respiratory distress, no wheezes/rales/rhonchi
ABDOMEN: Soft, nondistended, without focal tenderness, normoactive BS.
NEUROLOGICAL: Alert and oriented x3, no focal neuro deficits.
SKIN: Warm and dry, normal color, skin intact. There is mild patchy erythema right anterior lower leg with no soft tissue swelling, no palpable heat, no lymphangitis. No palpable tenderness. Skin is intact.
MUSCULOSKELETAL: No C/C/E. peripheral pulses are full and equal b/l. No palpable tenderness.
PSYCH: Normal and appropriate interaction.
Course
Orders/Labs/Results
Orders:
Orders
04/24/23 22:40
Acetaminophen [Tylenol] 1,000 mg PO NOW STA
Cephalexin Monohydrate [Keflex] 1,000 mg PO NOW STA
04/24/23 22:41
Ondansetron Orally Disint [Zofran Odt (Orally Disintegrating)] 4 mg PO NOW STA
Vital Signs
Initial and Last Documented VS:
Initial Vital Signs
Temp Pulse Resp BP Pulse Ox
100.0 F 99 15 133/97 97
04/24/23 20:56 04/24/23 20:56 04/24/23 20:56 04/24/23 20:56 04/24/23 20:56
Last Documented Vital Signs
Temp Pulse Resp BP Pulse Ox
100.0 F 99 15 133/97 96
04/24/23 20:56 04/24/23 20:56 04/24/23 20:56 04/24/23 20:56 04/24/23 21:01
MDM/Problems Addressed
Differential Diagnosis Includes:
Patient is returned from [facility] with concern for abnormal vital signs, hypertension and tachycardia.
Hypertension has improved, tachycardia has resolved. He is noted to have low-grade fever and is currently being treated for cellulitis of right lower extremity.
He is noted to have mild patchy erythema right anterior lower leg but no palpable heat nor tenderness and patient himself admits that cellulitis is improving.
He is noted to have mild uptrend in white blood cell count but this is likely related to opioid withdrawal. Similarly with sporadic hypertension and tachycardia, again related to opioid withdrawal.
Thus far doing well with Subutex and recommend continuing with Subutex for opioid withdrawal syndrome.
Recommend continuing as needed clonidine for hypertension and withdrawal symptoms as well as as needed Zofran for nausea.
Will give an oral dose of Zofran now as well as an oral dose of Keflex along with Tylenol for borderline low-grade fever and will discharge back to [facility].
As noted in discharge summary, would recommend repeat CBC in 3 days time.
Continue with current medication regimen as prescribed upon hospital discharge this afternoon.
Chronic conditions affecting care: Other (Opioid use disorder)
*Pulse Oximetry
Patient hypoxic: no
*Critical Care Note
Total Time (30-74mins, 75-104mins- exclusive of procedures): Not Applicable
ED Attending Note
-
Portions of this chart may have been created with voice recognition software.� Occasional wrong word or��sound alike� substitutions may have occurred due to the inherent limitations of voice recognition software.
Discharge Plan
Departure
Patient Disposition: [facility]
Date of Disposition: 04/24/23
Time of Disposition: 23:06
Patient with high blood pressure during this ER visit?: Yes
Condition: Good
Discharge Problem:
resolving cellulitis RLE, Opioid abuse, uncomplicated, opioid withdrawal-mild, hypertension r/t opioid withdrawal
Prescriptions:
No Action
clonidine HCl 0.1 mg Tablet
0.1 mg PO UD
Rx Instructions:
ON 04/20/23-04/23/23 TABLE 0.1MG TID THEN ON 04/24/23-04/25/23 TABL 0.1MG BID THEN ON 04/26/23-04/27/23 TAKE 0.05MG BID
ondansetron HCl 4 mg Tablet
4 mg PO TIDPRN PRN (Reason: NAUSEA)
loperamide 2 mg Tablet
2 mg PO TIDPRN PRN (Reason: DIARRHEA)
acetaminophen 325 mg Tablet
650 mg PO Q4HPRN PRN (Reason: Mild Pain / Temp > 101) Qty: 0 0RF
tizanidine 2 mg Tablet
2 mg PO Q6HPRN PRN (Reason: restlessness,agitation,anxiety) Qty: 0 0RF
buprenorphine HCl 8 mg Tablet, Sublingual
16 mg sublingual DAILY Qty: 0 0RF
Rx Instructions:
wean as appropriate with physician at facility
cephalexin 500 mg capsule
500 mg PO QID 8 Days Qty: 32 0RF
Referrals:
[facility] [Family Provider] -
Activity Restrictions/Additional Instructions:
Continue current medications as prescribed upon discharge this afternoon which include cephalexin 500 mg 4 times daily over the next 8 days for treatment of right lower extremity cellulitis which appears to be improving clinically and improving as
per patient's report.
He is also being treated for substance use disorder/opioid abuse, being treated for opioid withdrawal symptomatology which, for Angelo, has resulted in some intermittent nausea and intermittent accelerated hypertension, well-controlled with as
needed ondansetron and clonidine, also prescribed upon discharge this afternoon.
He was treated with Subutex during hospitalization and recommend continuing with an opioid withdrawal regimen as per [facility] guidelines.
Yes, white blood cell count trended up slightly but clinically patient has improved dramatically and overall we did not treat 'numbers' we treat the whole patient, the whole picture and as he has been improving, the recommendation is to repeat CBC
in 3 days time. That elevated white blood cell count is likely in response to opioid withdrawal.
Interventions
Interventions:
*Risk Screen - Suicide Last Done: 04/24/23 20:56
*General Assessment Last Done: 04/24/23 20:56
*Neglect/Abuse Screening Last Done: 04/24/23 20:56
ED- Fall Risk Assessment Last Done: 04/24/23 21:01
*Nursing Disposition Last Done: 04/24/23 23:31
ED- Cardiac Assessment Last Done: 04/24/23 21:01
ED- Neurological Assessment Last Done: 04/24/23 21:01
ED- Pulmonary Assessment Last Done: 04/24/23 21:01
Discharge Date and Time
Discharge Date/Time: 04/24/23 23:32
[2023-04-24] MEDS: KEFLEX 1000 MG PO (23:28)
[2023-04-24] MEDS: TYLENOL 1000 MG PO (23:28)
[2023-04-24] MEDS: ZOFRAN ODT (ORALLY DISINTEGRATING) 4 MG PO (23:28)
== END 2023-04-24 23:32 ==
LOC: EMR 20:51
PROVIDERS: EMERGENCY PHYSICIAN Emergency Medicine
DX: F11.23 Opioid dependence with withdrawal (principal); I10 Essential (primary) hypertension; L03.115 Cellulitis of right lower limb
CPT/HCPCS: 99283

== ENCOUNTER 2023-04-25 23:39 | Inpatient (IN) | payer MEDICAID, SELFPAY ==
[2023-04-25 21:18] VITALS: BP 137/86; BMI 33.7
[2023-04-25 21:20] VITALS: BP 137/86
[2023-04-25 22:00] VITALS: BP 143/81
[2023-04-25 22:13] LABS: % Basophils 0.3 % (0-2); % Immature Granulocytes 1.4 % (0-0.5); % Lymphocytes 19.5 % (20.5-51.1); % Monocytes 12.5 % (1.7-9.3); % Neutrophils 66.3 % (42.2-75.2); Absolute Basophils 0.1 10^3/uL (0-0.2); Absolute Immature Granulocytes 0.3 10^3/uL (0-0.05); Absolute Lymphocytes 4.6 10^3/uL (1.2-3.4); Absolute Neutrophils 15.7 10^3/uL (1.4-6.5); Hematocrit 25.9 % (39.0-52.0); Hemoglobin 8.9 g/dL (13.0-18.0); Mean Corp Hgb Conc. 34.4 g/dL (33.0-37.0); Mean Corpuscular Hgb 28.3 pg (27.0-31.0); Mean Corpuscular Volume 82.2 fL (80.0-94.0); Mean Platelet Volume 10.5 fL (7.4-10.4); Nucleated Red Blood Cells % 0 % (-); Platelet Count 333 10^3/uL (130-400); Red Blood Cell Count 3.15 10^6/uL (4.70-6.10); Red Cell Dist. Width 13.6 % (11.5-14.5); White Blood Cell Count 23.7 10^3/uL (4.8-10.8)
--- NOTE | 2023-04-25 22:32 | ED.GENMED ---
History of Present Illness
General
Chief Complaint: Fainting/Passed Out
Source: patient, police (Detention guards) and previous hospital records
Exam Limitations: none
Time Seen by Provider: 04/25/23 22:06
Nursing documentation reviewed up to this point in time: agreed with
Travel History
Have you had any contact with someone who has COVID-19?: No
Do you have any symptoms of coronavirus? Fever > 100 degrees, chills, cough, shortness of breath, sore throat, loss of taste or smell, muscle aches, or headache?: No
History of Present Illness
History of Present Illness:
This a pleasant 37-year-old prisoner, resident of [facility] who presents with 3 syncopal episodes that occurred today. Patient was seen by the [facility] nurse and syncopized in front of her. Patient then had orthostatic vital
signs which were positive. Patient was seen last evening for similar issue. Patient denies chest pain but does report some weakness and shortness of breath. Patient has a past medical history significant for opioid use disorder. He reports
taking heroin intranasally. Patient was admitted to this hospital recently for right lower extremity cellulitis. He was discharged back to [facility] yesterday afternoon and seen in the ER again last evening.
Vital signs are stable. Patient not hypoxic
Nursing note reviewed. I agree with nursing documentation up to this point in time.
Home Meds and allergies reviewed.
NUMBER AND COMPLEXITY OF PROBLEMS ADDRESSED AT THE ENCOUNTER
� Chronic conditions affecting care: Drug abuse
� Acute Exacerbation and/or Progression of Chronic Illness:
� Differential Diagnosis includes: SIRS, UTI, kidney stone, orthostasis, GI bleed
AMOUNT AND/OR COMPLEXITY OF DATA TO BE REVIEWED AND ANALYZED
I performed an independent evaluation of the following and my interpretation is:
EKG: EKG shows sinus tachycardia with PSVT's. QT is prolonged at 547 ms. QT has lengthened since previous EKG dated April 20, 2023.
CT:
X-rays:
Ultrasound:
Laboratory Studies: White blood cell count went from 15.7-23.7. Hemoglobin dropped from 11. 1-8.9. Hematocrit 25.9
Other:
Review of other/old records: Previous lab work. Blood culture from 04/20/2023 showed no growth
Clinical information was obtained by an independent historian: Detention record
Prescriptions/Medications Considered but not given: Blood at this time.
Further testing considered but not performed:
RISK OF COMPLICATIONS AND/OR MORBIDITY OR MORTALITY OF PATIENT MANAGEMENT
Social determinants of health affecting care:Detention inmate
Discussion with other providers: Hospitalist for admission
Escalation of care including admission/observation vs risk of discharge considered:
CRITICAL CARE NOTE: 35 minutes
Total Time (exclusive of procedures):
Update:
Past History
Past History
ED Past Medical History: Other (Substance use disorder, cellulitis right lower extremity)
ED Past Surgical History: Orthopedic (Left foot surgery 2018) and Other (Hernia repair times 04/2017)
Social History
Tobacco: Non-smoker
Alcohol: None
Drug: Narcotics (Snorts heroin)
Personal: Single
Living: [facility] (Currently resides in [facility])
Employment: Not employed
Family History
Family History: Other (Noncontributory)
Review of Systems
Review of Systems
Allergies reviewed?: Yes
All Other Systems: ROS reviewed and negative except as documented in HPI and ROS
Constitutional: Reports fatigue; Denies sleep disturbance, night sweats or chills
EENT: Reports no symptoms
Respiratory: Denies trouble breathing
Cardiac: Denies chest pain or syncope
ABD/GI: Denies nausea or constipated
: Reports no symptoms
Musculoskeletal: Reports no symptoms
Skin: Reports no symptoms
Neurological: Reports no symptoms
Endocrine: Reports no symptoms
Hematologic/Lymphatic: Reports no symptoms
Psychiatric: Reports no symptoms
Phy Exam
General Physical Exam
General Presentation: well appearing and no apparent distress
General Skin: warm and dry
General Habitus: normal
General Mental: alert
General Hydration: appears well hydrated
ENT Exam
ENT Exam: EOMI, pharynx normal, neck supple and normocephalic
Eye Exam
Eye Exam: PERRL, cornea clear and conjunctiva normal
Cardiovascular Exam
Cardiovascular Exam: regular rate/rhythm, no edema, no murmur, normal peripheral pulses and tachycardia (Episodes of tachycardia)
Pulmonary Exam
Pulmonary Exam: lungs clear, no respiratory distress, no rales, no crackles, no rhonchi, no stridor, no wheezing and no cough
Gastrointestinal Exam
Gastrointestinal Exam: normal bowel sounds, non tender, soft, no organomegaly, no pulsatile mass and non distended
Palpation: left upper quadrant: No tenderness, left lower quadrant: No tenderness, right upper quadrant: No tenderness, right lower quadrant: No tenderness and generalized: No tenderness
Auscultation of Abdomen: normal
Stool: brown
Guaiac Status: negative (Performed in the presence of female nursing)
Neurological Exam
Neurological Exam: alert, oriented x3, no motor deficits and speech normal
Musculoskeletal Exam
Musculoskeletal Exam: full ROM and no edema
Skin Exam
Skin Exam: normal color, warm/dry, no rash and no petechia
Psychiatric Exam
Psychiatric Exam: normal mood/affect
Course
Orders/Labs/Results
Orders:
Orders
04/25/23 21:16
Electrocardiogram (*1) Urgent
Reason for Study: Syncope
04/25/23 21:17
EKG- Treatment ONCE
04/25/23 22:06
C-Reactive Protein Urgent
Comment: ADD ON
Complete Blood Count/With Diff Urgent
Comprehensive Metabolic Panel Urgent
Erythrocyte Sed Rate Urgent
Comment: ADD ON
Troponin I Urgent
04/25/23 22:30
Cardiac Monitoring- Treatment ONCE
Orthostatic VS- Treatment ONCE
04/25/23 22:31
0.9% Sodium Chloride 1000 ml [Nss] 2,400 ml IV NOW STA
04/25/23 22:47
Procalcitonin Urgent
PCT Algorithmm Indication: Sepsis
04/25/23 22:55
Lactic Acid Q4H
Comment: CANCEL 2nd LACTIC ACID IF 1st LACTIC ACID IS LESS THAN 2
Blood Culture, Pediatric Urgent
DARRELL Source: Blood/Venous
Specimen Description:
Date Specimen was Collected: 04/25/23
Time Specimen was Collected: 22:54
04/25/23 23:09
Add On- LAB Urgent
Comments:: in lab
Tests Added?: CRP, Sed rate
04/25/23 23:19
Urinalysis Reflex To Culture Urgent
Date Specimen was Collected: 04/25/23
Time Specimen was Collected: 23:17
04/25/23 23:21
Drug Screen, Urine [Urine Drug Abuse Screen] Routine
Date Specimen was Collected: 04/25/23
Time Specimen was Collected: 23:56
04/25/23 23:28
Type+Screen Urgent
04/25/23 23:30
CT Abd/pel Without Iv Or Oral Urgent
Comment:
Reason For Exam: flank pain earlier
04/25/23 23:35
Aztreonam [Azactam] 2,000 mg IV NOW STA
MetroNIDAZOLE 500 MG/100 ML [Flagyl 500 mg] 100 ml IV NOW
04/26/23 02:30
Lactic Acid Q4H
Comment: CANCEL 2nd LACTIC ACID IF 1st LACTIC ACID IS LESS THAN 2
Abnormal Lab Results
04/25/23 04/25/23
22:06 22:55
WBC 23.7 H 10^3/uL
(4.8-10.8)
RBC 3.15 L 10^6/uL
(4.70-6.10)
Hgb 8.9 L g/dL
(13.0-18.0)
Hct 25.9 L %
(39.0-52.0)
MPV 10.5 H fL
(7.4-10.4)
Abs Immat Gran (auto) 0.3 H 10^3/uL
(0-0.05)
Absolute Neuts (auto) 15.7 H 10^3/uL
(1.4-6.5)
Absolute Lymphs (auto) 4.6 H 10^3/uL
(1.2-3.4)
Absolute Monos (auto) 3.0 H 10^3/uL
(0.1-0.6)
Immature Gran % 1.4 H %
(0-0.5)
Lymphocytes % 19.5 L %
(20.5-51.1)
Monocytes % 12.5 H %
(1.7-9.3)
ESR 39 H mm/hour
(0-20)
Sodium 133 L mmol/L
(135-145)
Potassium 3.3 L mmol/L
(3.5-5.1)
Chloride 96 L mmol/L
(98-107)
BUN 34 H mg/dl
(9-20)
Lactic Acid 2.2 H mmol/L
(0.7-2.0)
C-Reactive Protein 32.80 H mg/L
(0.0-10.00)
Total Protein 5.9 L g/dl
(6.3-8.2)
Albumin 3.4 L g/dl
(3.5-5.0)
04/25/23 22:06
04/25/23 22:06
Vital Signs
Initial and Last Documented VS:
Initial Vital Signs
Pulse Resp Pulse Ox
111 16 99
04/25/23 21:17 04/25/23 21:17 04/25/23 21:17
Last Documented Vital Signs
Temp Pulse Resp BP Pulse Ox
98.6 F 97 16 148/79 99
04/26/23 00:33 04/26/23 00:15 04/26/23 00:15 04/26/23 00:01 04/26/23 00:15
*Critical Care Note
Total Time (30-74mins, 75-104mins- exclusive of procedures): 35
comment:
Critical care statement: A total of 35 minutes of critical care time was provided for this patient. This time is separate from time utilized to perform the aforementioned documented procedures. Aggregate critical care time includes only time
during which I was engaged in work directly related to the patient's care, as described above, whether at the bedside or elsewhere in the Emergency Department.
Update Note
Update Note:
Patient states that earlier today he had pain after urinating. He saw blood at the tip of his penis. He complains of bilateral flank pain tonight
CT ABDOMEN AND PELVIS noncontrast
IMPRESSION:
Wall thickening involving the proximal duodenum with adjacent fat stranding extending toward the pancreatic head. Findings suspicious for duodenitis or peptic ulcer disease, with pancreatitis felt less likely. Consider correlation with lipase
levels.
High attenuation material within the proximal duodenum, could represent blood products or something ingested.
No free air or free fluid.
Unremarkable gallbladder and biliary tree.
No obstructive uropathy.
Moderate stool burden. Normal appendix.
Mild bronchitis at the lung bases.
ED Attending Note
-
Portions of this chart may have been created with voice recognition software.� Occasional wrong word or��sound alike� substitutions may have occurred due to the inherent limitations of voice recognition software.
Discharge Plan
Departure
Patient Disposition: Admit
Date of Disposition: 04/25/23
Time of Disposition: 23:38
Admit to: IVU
Presentation/result/management discussed w/ accepting MD/DO: Hospitalist
Condition: Fair
Discharge Problem:
Cellulitis of right lower limb, Anemia, SIRS (systemic inflammatory response syndrome)
Interventions
Interventions:
*Risk Screen - Suicide Last Done: 04/25/23 21:18
*General Assessment Last Done: 04/25/23 21:18
*Neglect/Abuse Screening Last Done: 04/25/23 21:18
ED- Fall Risk Assessment Last Done: 04/25/23 21:27
*ED COVID-19 Vaccine History Last Done: 04/25/23 21:18
ED- Cardiac Assessment Last Done: 04/25/23 21:27
ED- Neurological Assessment Last Done: 04/26/23 00:34
[2023-04-25 22:35] LABS: ALT (SGPT) 48 U/L (0-50); AST (SGOT) 39 U/L (17-59); Albumin 3.4 g/dl (3.5-5.0); Alkaline Phosphatase 83 U/L (38-126); Blood Urea Nitrogen 34 mg/dl (9-20); Calcium 8.9 mg/dl (8.4-10.2); Carbon Dioxide 27 mmol/L (22-30); Chloride 96 mmol/L (98-107); Estimated Creatinine Clearance > 125 ml/min; Glucose 96 mg/dl (70-99); Potassium 3.3 mmol/L (3.5-5.1); Sodium 133 mmol/L (135-145); Total Bilirubin 0.4 mg/dl (0.2-1.3); Total Protein 5.9 g/dl (6.3-8.2); eGFR > 60.00
[2023-04-25 22:37] LABS: Troponin I 0.029 ng/ml
[2023-04-25] MEDS: NSS 2400 ML IV (22:56)
[2023-04-25 23:00] VITALS: BP 152/86
[2023-04-25 23:15] LABS: Lactic Acid 2.2 mmol/L (0.7-2.0)
[2023-04-25 23:22] LABS: Erythrocyte Sed Rate 39 mm/hour (0-20)
[2023-04-25 23:24] LABS: Procalcitonin < 0.05 ng/ml (0.0-0.25)
--- NOTE | 2023-04-25 23:31 | HPS.HSE ---
Family Physician
-
Family Physician: Facility [facility]
Chief Complaint
-
Passed out times 3
History of Present Illness
37M inmate from [facility] , DC';d on 04/24/23 with Rt leg cellultitis on Keflex for 8 more days, PMH significant for substance abuse who presents with 3 syncopal episodes that occurred today. Patient was seen by the [facility] nurse and syncopized in front
of her. [facility] Patient was seen last evening for similar issue.
HX inhalational heroine abuse.
Medical History
Past Medical History
Past Medical History: Reports Other (Substance use disorder, cellulitis right lower extremity))
Past Surgical History: Reports Other
Additional Past Surgical History:
(Left foot surgery 2018) and Other (Hernia repair times 04/2017)
Social History
Alcohol: None
Drug: Other (Snorts heroin))
Personal: Single
Employment: Not Employed
Family History
Family History: Not pertinent
Allergies / Home Medications
Allergies reflects when Allergies were last updated in [employer].
Home Medications with original date entered in [employer]
Allergy/Medication List:
Allergies
Allergy/AdvReac Type Severity Reaction Status Date / Time
Penicillins Allergy Intermediate Shortness Verified 04/25/23 22:32
of Breath
Home Medications
buprenorphine HCl 8 mg sublingual tablet 16 mg sublingual DAILY #0 tabs 04/24/23
acetaminophen 325 mg tablet 650 mg PO BIDPRN PRN Mild Pain / Temp > 101 04/25/23
cephalexin 500 mg capsule 500 mg PO TID 04/25/23
ondansetron 4 mg disintegrating tablet 4 mg PO TIDPRN PRN nausea/vomiting 04/25/23
Review of Systems
-
Constitutional: Reports No Symptoms
EENT: Reports No Symptoms
Respiratory: Reports No Symptoms
Cardiac: Reports See HPI; Denies Chest Pain
Abdomen/GI: Reports See HPI; Denies Bloody Stools or Black Stools
: Reports No Symptoms
Musculoskeletal: Reports No Symptoms
Skin: Reports No Symptoms
Neurological: Reports See HPI and Other (suncope x 3 )
Endocrine: Reports No Symptoms
Hematologic/Lymphatic: Reports No Symptoms
Psych: Reports No Symptoms
Physical Exam
Vital Signs
Vital Signs
Temp Pulse Resp BP Pulse Ox
99.2 F 102 14 152/86 100
04/25/23 21:18 04/25/23 23:00 04/25/23 23:00 04/25/23 23:00 04/25/23 21:45
Physical Exam
General: Other (see below )
Laboratory Results
-
04/25/23 22:06
04/25/23 22:06
Laboratory Results
Lactic Acid 2.2 mmol/L (0.7-2.0) H 04/25/23 22:55
Total Bilirubin 0.4 mg/dl (0.2-1.3) 04/25/23 22:06
AST 39 U/L (17-59) 04/25/23 22:06
ALT 48 U/L (0-50) 04/25/23 22:06
Alkaline Phosphatase 83 U/L (38-126) 04/25/23 22:06
Troponin I 0.029 ng/ml 04/25/23 22:06
Data Reviewed
-
Ultrasound: Report Reviewed by me
Medical Tests (Nuc Med, Echo, EKG etc): Report Reviewed by me
Lab Data: Labs Reviewed by me
Old Records: Reviewed
Impression/Plan
-
Reviewed VS: 99.2 ST 102. BP 150/85 RR 14 POx 100
PE
Gen: not toxic
HEENT: dry OM
Neck: supple
Lungs: CTA
Cor: RRR S1 S2
Abdomen: soft, NT, NRT
COMBINATION PRESSER: NFND
MS: no edema
Psych: normal mood/affect
Data
WCC 23
Hgb 8.9 - baseline was hi 10s to low 11s
Na 133
K 3.3
Cl 96
CO2 27
nl Cr
nl eGFR
NEG TPNI
EKG report
SINUS TACHYCARDIA WITH PREMATURE SUPRAVENTRICULAR COMPLEXES
PROLONGED QT
ABNORMAL ECG
WHEN COMPARED WITH ECG OF 20-APR-2023 22:36,
PREMATURE SUPRAVENTRICULAR COMPLEXES ARE NOW PRESENT
NONSPECIFIC T WAVE ABNORMALITY NOW EVIDENT IN ANTEROLATERAL LEADS
QT HAS LENGTHENED to 547
Pending LA
Pending procalcitonin
04/20/23 NEG BCx time 2
04/25/23 BCx - NEG BCx
04/20/23 US Periph Venous LOWER Ext RT
No evidence of deep venous thrombosis.
There is right inguinal lymphadenopathy with right inguinal lymph nodes measuring up to 3 cm
Recent hospitalist admission 04/20/23 - 04/24/23
DC DX;
1. Right lower extremity cellulitis on Cephalexin 500 mg PO QID 8 days
2. Opioid Withdrawal
ASSESSMENT & PLAN
SIRS like picture but uncertain origin - infectious vs. non infectious like acute substance WDS
Significant leucocytosis - reactive vs. acute infection
Recent Rt Taryn cellulitis
HX PCN allergy but tolerate Keflex
- pending LA
- BCx sent
- Tend T, BP and WCC
- Agree with empiric IV Vanco, Cefepime in place of Kelfex
- IVF
- ID consult
Interval anemia - significant drop in Hgb - No reported gross blood loss per patient.
NEG HoB stool per IBRAHIMA per ER attd
HX Normocytic Anemia
- Blood consented by ER [facility]
- No indication for Blood Tx for now
- Observe and f/u H & H q6h
Recurrent syncopes - witnessed - unclear etiology
Reported postural hypotension
Noted QTc has lengthend to 547
DDX: Arrhythmias, symptomatic hypotension, occult substance abuse
- Held tizanidine, held clonidine due to prolonged QT
- check UDS
- ortho VSS x2
- phototypesetting equipment monitor
- ECHO
- CBC card consult
HX Opioid Withdrawal - significant issue on last admission
- Patient with daily use of intranasal heroin amounting to about 8 bags daily.
- Resume opioid withdrawal treatment protocol with COWS monitoring / buprenorphine dosing
- cont Subutex outpatient
- Held tizanidine, held clonidine due to prolonged QTc
Hypertension 2/2 to withdrawal
- Observe BP
DVT Prophylaxis: SQH
Code Status: Full
IMU
[2023-04-25 23:41] LABS: Urine Albumin Negative (Neg - Trace); Urine Bilirubin Negative (Negative); Urine Character Clear (Clear); Urine Color Yellow; Urine Glucose Negative (Negative); Urine Ketone Negative (Negative); Urine Leukocyte Negative (Negative); Urine Nitrite Negative (Negative); Urine Occult Blood Negative (Negative); Urine Urobilinogen Negative (Neg - 1+)
[2023-04-26] VITALS (21 sets, daily range): BP systolic 126–162; BP diastolic 55–98; PULSE 87–109; BMI 32.4
[2023-04-26] MEDS: VANCOCIN 540 MG IV (00:48)
[2023-04-26] MEDS: PROTONIX IV 80 MG IV (01:25)
[2023-04-26 01:26] LABS: Amphetamines Negative (Negative); Barbiturates Negative (Negative); Benzodiazepines Negative (Negative); Buprenorphine Positive (Negative); Cocaine Negative (Negative); Marijuana Negative (Negative); Methadone Negative (Negative); Methamphetamines Negative (Negative); Opiates Negative (Negative); Phencyclidine Negative (Negative); Tricyclic Antidepressants Negative (Negative)
--- NOTE | 2023-04-26 01:39 | PTCARENOTE ---
received patient from ER. patient alert and oriented x3. SR on monitor. afebrile. + pedal pulses. on RA, clear breath sounds. + BS. NPO. urinal at bedside. skin intact. 2 guards at bedside, L ankle shackled to bed. pt denies SOB or pain. R foot PIV,
L wrist PIV placed by VAT. IVF and ABX infusing. CHG bath done. call moore within reach, pt care ongoing.
[2023-04-26] MEDS: NSS 1000 IV ×2 (02:21→14:29)
[2023-04-26] MEDS: PROTONIX 100 IV ×2 (02:21→10:14)
[2023-04-26 02:30] LABS: Fentanyl, Urine Positive (Negative)
[2023-04-26] MEDS: MAXIPIME 1000 MG IV (02:33)
[2023-04-26] MEDS: STERILE WATER FOR INJECTION 10 ML IV (02:33)
--- NOTE | 2023-04-26 02:43 | W.PN.UPDATE ---
Update Note
Progress Note Update
CT ABDOMEN AND PELVIS noncontrast
Wall thickening involving the proximal duodenum with adjacent fat stranding extending toward the pancreatic head.
Findings suspicious for duodenitis or peptic ulcer disease, with pancreatitis felt less likely. Consider correlation with lipase levels.
High attenuation material within the proximal duodenum, could represent blood products or something ingested.
No free air or free fluid.
Unremarkable gallbladder and biliary tree.
No obstructive uropathy.
Moderate stool burden. Normal appendix.
Mild bronchitis at the lung bases.
- NPO except sips of clear and ice chips
- Empiric PPI gtt
- GI consult
--- NOTE | 2023-04-26 04:05 | PTCARENOTE ---
pt reassessed. assessments unchanged. IVF and protonix gtt infusing. L ankle shackle in place, 2 guards at bedside. phlebotomy contacted to obtain AM labs. pt care ongoing.
[2023-04-26 06:36] LABS: % Basophils 0.3 % (0-2); % Eosinophils 0.2 % (0-6); % Lymphocytes 18.1 % (20.5-51.1); % Monocytes 9.1 % (1.7-9.3); % Neutrophils 71.3 % (42.2-75.2); Absolute Basophils 0.1 10^3/uL (0-0.2); Absolute Eosinophils 0.1 10^3/uL (0-0.7); Absolute Immature Granulocytes 0.2 10^3/uL (0-0.05); Absolute Lymphocytes 3.8 10^3/uL (1.2-3.4); Absolute Monocytes 1.9 10^3/uL (0.1-0.6); Hematocrit 21.6 % (39.0-52.0); Hemoglobin 7.4 g/dL (13.0-18.0); Mean Corp Hgb Conc. 34.3 g/dL (33.0-37.0); Mean Corpuscular Hgb 28.4 pg (27.0-31.0); Mean Corpuscular Volume 82.8 fL (80.0-94.0); Mean Platelet Volume 10.6 fL (7.4-10.4); Nucleated Red Blood Cells % 0 % (-); Platelet Count 304 10^3/uL (130-400); Red Blood Cell Count 2.61 10^6/uL (4.70-6.10); Red Cell Dist. Width 13.6 % (11.5-14.5); White Blood Cell Count 21.1 10^3/uL (4.8-10.8)
[2023-04-26 06:47] LABS: Lactic Acid 0.7 mmol/L (0.7-2.0)
[2023-04-26 07:06] LABS: ALT (SGPT) 41 U/L (0-50); AST (SGOT) 31 U/L (17-59); Albumin 3.1 g/dl (3.5-5.0); Alkaline Phosphatase 97 U/L (38-126); Blood Urea Nitrogen 20 mg/dl (9-20); Calcium 8.1 mg/dl (8.4-10.2); Carbon Dioxide 24 mmol/L (22-30); Chloride 103 mmol/L (98-107); Direct Bilirubin 0.5 mg/dl (0.0-0.4); Estimated Creatinine Clearance > 125 ml/min; Glucose 100 mg/dl (70-99); Potassium 3.8 mmol/L (3.5-5.1); Sodium 132 mmol/L (135-145); Total Bilirubin 0.5 mg/dl (0.2-1.3); Total Protein 5.5 g/dl (6.3-8.2); eGFR > 60.00
--- NOTE | 2023-04-26 08:00 | PHA.VAN.IN ---
Assessment
- Assessment
Renal Function: Appears similar to baseline
Concomitant Antimicrobials: cefepime
AUC Dosing Plan
- Dosing Variables
Dosing Weight (kg): 111
Dosing CrCl (ml/min): 125
Vd coefficient (L/kg): 0.6 (BMI > 30)
- Empiric Dosing
Initial / Loading Dose: 2000 mg x 1 ~ 0100 04/26/23
Maintenance Regimen: 1000 mg q8h - first dose now
Estimated AUC (mcg*h/mL): 450
Estimated Peak (mcg*h/mL): 25.9
Estimated Trough (mcg/ml): 12.8
Estimated Half Life (H): 6.4
- Monitoring
No levels ordered at this time: consider levels after tomorrow's 2200 dose
Pharmacokinetics Vancomycin I
- -
Patient Age: 37
Patient Sex: Male
Vancomycin Day #: 1
Indication: Skin And Soft Tissue
Requesting Provider: DAVID
Pertinent Antimicrobial Allergies:
penicillins - tolerated Kelfex
Height / Weight:
Height 6 ft 1 in
Actual Weight 111.2 kg
Pertinent Past Medical History: rt leg cellulitis (recent admission dcd on 04/24)- on Keflex x 8 D; [facility]
- Vital Signs / Lab Results
Temp Pulse Resp BP Pulse Ox
99.4 F 88 19 152/92 95
04/26/23 04:04 04/26/23 06:30 04/26/23 06:30 04/26/23 06:00 04/26/23 06:30
Lab Results - Hematology
04/25/23 04/26/23
22:06 06:14
WBC 23.7 H 21.1 H
Lab Results - Chemistry
04/25/23 04/26/23
22:06 06:14
BUN 34 H 20
Creatinine 0.7 0.6 L
Estimated Creat Clear > 125 > 125
Albumin 3.4 L 3.1 L
04/25/23 04/26/23 04/26/23
22:55 01:20 06:14
Lactic Acid 2.2 H Cancelled Cancelled
04/26/23
06:14
Lactic Acid 0.7
Lab Results - Urine
04/25/23
23:19
Urine Nitrite (Reflex) Negative
Leukocyte Esterase Rfl Negative
--- NOTE | 2023-04-26 08:05 | CON.ID ---
Consultation
-
Date/Time Consultation Requested: 04/26/23 1:20
Date/Time Consultation Performed: 04/26/23 8:06
Requesting Provider: Dr Madison
Performing Provider: Dr Chahal
Reason for Consultation: Rt leg cellulitis ,SIRS picture- infectous vs non infectous ?
Chief Complaint / Past History
Chief Complaint
fainted x3
History of Present Illness
Mr Lao is a 37 year old male currently incarcerated with substance use disorder who [facility] from [facility] for syncope x3; RN in [facility] witnessed one of the episodes. He was recently diagnosed with Rt leg cellulitis and has
been on keflex since saturday - 7 days. Reports last use was also saturday.
Since arrival here he has been afebrile, bp stable, wbc initially 24 now 21, hgb 7.4, plt 304, L shit not present on arrival or since, esr 39, cr 0.6, lactic acid initially 2.2, now 0.7, t bili 0.5, ast 31, alt 41, alk phos 97, procalcitonin <0.05,
UA negative, UDS buprenorphine/fentanyl, CXR no acute cp process, CT a/p without contrast: thickened/inflammated duodenus - proximal t opancreatic head - duodenitis/PUD less likely pancreatitis, single set of blood cultures appears to have been
sent, currently on vanc/cefepime.
Past History
Additional Past Medical History:
Substance use disorder, cellulitis right lower extremity)
Additional Past Surgical History:
Substance use disorder, cellulitis right lower extremity)
Allergy History:
Penicillins Allergy (Intermediate, Verified 04/25/23 22:32)
Shortness of Breath
Medications Reviewed: Yes
Social History
Tobacco: Non-Smoker
Drug: Other (snorts heroin)
Employment: Not Employed
Family History
Family History: Not Pertinent
Review of Systems
Review of Systems
General: Negative Fever or Chills
Vital Signs
Temp Pulse Resp BP Pulse Ox
99.4 F 88 19 152/92 95
04/26/23 04:04 04/26/23 06:30 04/26/23 06:30 04/26/23 06:00 04/26/23 06:30
Physical Exam
Physical Exam
Constitutional: No Acute Distress
Cardiovascular: Regular Rate and S1/S2; Negative Murmur or Rub
Pulmonary: Clear and Symmetric; Negative Wheezes, Rales or Rhonchi
Gastrointestinal: Soft, Non Tender, Non Distended and Normal Bowel Sounds
Skin: Warm and Dry; Negative Rash (no erythema, warmth, tenderness, drainage) or Jaundice
Lab / Diagnostic Study Results
04/26/23 06:14
04/26/23 06:14
Abs Immat Gran (auto) 0.2 10^3/uL (0-0.05) H 04/26/23 06:14
Absolute Neuts (auto) 15.0 10^3/uL (1.4-6.5) H 04/26/23 06:14
Absolute Lymphs (auto) 3.8 10^3/uL (1.2-3.4) H 04/26/23 06:14
Absolute Monos (auto) 1.9 10^3/uL (0.1-0.6) H 04/26/23 06:14
Absolute Basos (auto) 0.1 10^3/uL (0-0.2) 04/26/23 06:14
Immature Gran % 1.0 % (0-0.5) H 04/26/23 06:14
Neutrophils % 71.3 % (42.2-75.2) 04/26/23 06:14
Lymphocytes % 18.1 % (20.5-51.1) L 04/26/23 06:14
Monocytes % 9.1 % (1.7-9.3) 04/26/23 06:14
Eosinophils % 0.2 % (0-6) 04/26/23 06:14
Basophils % 0.3 % (0-2) 04/26/23 06:14
ESR Cancelled 04/25/23 22:35
Lactic Acid 0.7 mmol/L (0.7-2.0) 04/26/23 06:14
Lactic Acid Cancelled 04/26/23 06:14
C-Reactive Protein Cancelled 04/25/23 22:35
Procalcitonin < 0.05 ng/ml (0.0-0.25) 04/25/23 22:47
Microbiology Results
Micro:
04/25/23 22:55 Blood Culture - Pending
Blood/Venous
Assessment / Plan
SIRS - resolved
Leukocytosis - suspecting reactive
Allergy to penicillin - shortness of breath
IVDU with h/o withdrawal
- if patient had cellulitis last week it has now resolved
- send second set of blood cultures
- ua negative
- CXR unremarkable, CT a/p - possible PUD, less likely pancreatitis
- check lipase
- procalcitonin negative
- stop antibiotics and observe clinically - suspect leukocytosis is reactive
--- NOTE | 2023-04-26 08:19 | CON.CAR ---
Addendum entered and electronically signed by Earnest Villavicencio MD 04/26/23 10:44:
I saw and examined the patient.
The HYDRAULIC GOVERNOR ASSEMBLER's note was reviewed and I agree with the note.
Comment:
Syncope: Unclear etiology. No arrhythmia on tele so far. Echo ordered. Orthostais documented but not clear if all syncope was clinically c/w an orthostatic nature. His multiple metabolic abnormalites and imaging abnormalities suggests that a
primary syncopal event is not the cause of his overall status. His QTc raises the risk of Torsades as an etiology of syncope.
QTc prolongation. When he was here on 04/20/2023 his QTc was only 442. So perhaps the Zofran and metabolic abnormalities are the cause to the QTc prolongation. Avoid Zofran and other meds that can prolong the QTc.
Suggest:
1) Avoid meds that prolong the QTc as much as is possible
2) Tele
3) Serial EKGs
4) Echo
5) No objection to pt proceeding with EGD
Original Note:
Consultation
Consultation Request
Date/Time Consultation Requested: 04/26/23 00:38
Date/Time Consultation Performed: 04/26/23 08:20
Requesting Provider: Dr. Madison
Performing Provider: RASTA Lebron for Dr. Villavicencio
Reason for Consultation: Recurrent syncope with prolonged QTc
Medical History
-
Chief Complaint: Recurrent syncope
History of Present Illness:
Angelo Lao is a 37-year-old male presenting from [facility] with recurrent syncope. He had recent admission here for cellulitis and had difficulty with narcotic withdrawal. He was on Subutex during that hospitalization.
He returned back to the correctional facility on Keflex. He presents with recurrent syncope. Transfer paperwork reflect 3 syncopal episodes yesterday. There is also documentation reporting orthostatic hypotension. He denies a prodrome. He
denies chest pain. He is not short of breath.
Past Medical History
Past Medical History: Other (Substance abuse disorder)
Past Surgical History: Orthopedic
Social History
Drug: Narcotics
Living: [facility]way
Family History
Family History: Reviewed & Not Pertinent (Denies early CAD and SCD.)
Allergies / Home Medications
Allergy/AdvReac Type Severity Reaction Status Date / Time
Penicillins Allergy Intermediate Shortness Verified 04/25/23 22:32
of Breath
Medication Instructions Recorded Confirmed Type
buprenorphine HCl 8 mg sublingual 16 mg sublingual DAILY #0 tabs 04/24/23 04/25/23 Rx
tablet
acetaminophen 325 mg tablet 650 mg PO BIDPRN PRN Mild Pain / 04/25/23 04/25/23 History
Temp > 101
cephalexin 500 mg capsule 500 mg PO TID 04/25/23 04/25/23 History
ondansetron 4 mg disintegrating 4 mg PO TIDPRN PRN nausea/vomiting 04/25/23 04/25/23 History
tablet
Review of Systems
-
History Source: Patient
All other systems: Negative unless noted
Constitutional: Fatigue
Cardiac: Syncope
Abdomen/GI: No Symptoms
: No Symptoms
Physical Exam
Vital Signs
Temp Pulse Resp BP Pulse Ox
99.4 F 88 19 152/92 95
04/26/23 04:04 04/26/23 06:30 04/26/23 06:30 04/26/23 06:00 04/26/23 06:30
Lab Results
04/26/23 06:14
04/26/23 06:14
Troponin I 0.029 ng/ml 04/25/23 22:06
Physical Exam
General: Well Developed, Well Nourished, No Apparent Distress and Comfortable
HEENT: Normocephalic, Anicteric and Moist Mucous Membranes
Respiratory: Clear and Non Labored Respirations
Cardiac: S1/S2 and Regular Rhythm
Breast: Deferred by me
GI: Soft, Non Tender, Non Distended and Normal Bowel Sounds
Rectal: Deferred by Provider
Genito-urinary: No Costovertebral Tender
Musculoskeletal: No Clubbing, No Cyanosis and Edema (trace ankle)
Skin: Warm and Dry
Neuro: AO x 3
Hematologic/Lymphatic: No Lymphadenopathy
Psych: Calm
Impression / Plan
-
Recurrent syncope with prolonged QTc
-On Buprenorphine, he is currently on 16 mg daily at his correctional facility
-He is also on ondansetron as well, would recommend discontinuation
-Update EKG, QTc appears improved by telemetry monitoring
Concern for SIRS
-Elevated lactate, leukocytosis, elevated CRP with recent cellulitis
-ID following
Anemia, CT with concern for duodenitis/PUD, GI following
Substance abuse disorder, heroin, on Buprenorphine per primary
Data Reviewed
-
EKG: Report Reviewed by me (Sinus tachycardia, premature supraventricular complexes, prolonged QTc [547 ms], heart rate 106)
Radiology: Report Reviewed by me (CXR: No acute cardiopulmonary process.)
CT Scan: Report Reviewed by me (Thickened and inflamed appearance of the proximal duodenum with adjacent fat stranding which extends in close proximity to the pancreatic head. Small amount of hyperdense material seen within the third and fourth
portion of the duodenum, possibly representing blood products. )
Labs: Labs Reviewed by me
Old Records: Reviewed
--- NOTE | 2023-04-26 08:21 | CON.GI ---
Addendum entered and electronically signed by Nidhi Crespo MD 04/26/23 11:48:
I saw and examined the patient.
The RUG UNDERLAY MACHINE OPERATOR's note was reviewed and I agree with the note.
Comment: This is a 37-year-old incarcerated male with history of substance abuse, remote h/o esophagitis and recent cellulitis was brought into the emergency room with multiple episodes of syncope(3) and on admission was noted to have anemia with a
hemoglobin of 8.9 with further drop to 7.4 today, hemoglobin on 04/24/2023 was 11.1 He denies any abdominal pain he also denies any rectal bleeding or melena, denies NSAID use. CT on admission shows findings concerning for probable duodenitis versus
less likely pancreatitis, lipase level was normal. He did have a prolonged QTc has been evaluated by cardiology and cleared for endoscopy.
Assessment and plan status post syncopal episodes X 3 and also has evidence of anemia with no overt bleeding currently but given findings on CT with probable duodenitis will schedule him for endoscopy today he has been started on Protonix drip he
was heme-negative in the ER
Original Note:
Consultation
-
Date/Time Consultation Requested: 04/26/23 @ 01:20
Date/Time Consultation Performed: 04/26/23 @ 08:30
Requesting Provider: RASTA Avalos
Performing Provider: RASTA Bradley; Dr. Crespo
Reason for Consultation: gastritis, anemia
Medical History
Chief Complaint / HPI
Chief Complaint: Passed out times 3
History of Present Illness:
The pt is a 37 yo incarcerated male with a PMH significant for recent admission and treatment for right LE cellulitis on Keflex, substance abuse (snorts heroin) who presented to the ER with recurrent episodes of syncope. We are being asked to
evaluate for anemia and gastritis. The patient reports at the longterm he passed out 3 times. He notes he did not have any presyncopal symptoms such as dizziness or lightheadedness and went unresponsive. He does note a history of intranasal heroin
use but denies any other drug use. He denies any signs of bleeding such as melena, hematochezia, or hematemesis, but he does admit to abdominal pain. He reports historically having an endoscopy several years ago for questionable erosive
esophagitis. He otherwise denies any chest pain, shortness of breath, nausea, vomiting, dysphagia, odynophagia, fevers, or chills. He denies any use of any anti-acid medications. He denies any history of GI bleeding, anemia, or NSAID use. He
denies use of blood thinners. No prior colonoscopy. On admission noted with a hemoglobin of 8.9, down to 7.4 this morning. Other pertinent lab findings include WBC 23,700, CRP 32.8, ESR 39, BUN 34, lactic acid 2.2, platelets 333,000, sodium 132,
potassium 3.8. Drug screen positive for buprenorphine and fentanyl. He underwent CT imaging which showed a thickened and inflamed appearance of the proximal duodenum with adjacent fat stranding extending close proximity to the pancreatic head with
a small amount of hyperdense material seen in the third and fourth portion of the duodenum concerning for possible duodenitis versus peptic ulcer disease versus pancreatitis. He was made n.p.o., placed on PPI drip, and admitted for further
evaluation by GI. He has also been on antibiotics for right lower extremity cellulitis with Keflex and ID is following as well. Also with cardiology consult pending with prolonged QTc on EKG of 547.
Past Medical History
Past Medical History: Other (substance abuse (heroin), RLE cellulitis)
Past Surgical History: Other (hernia repair, left foot surgery)
Social History
Tobacco: Non-Smoker
Alcohol: None
Drug: Other (heroin)
Living: [facility]
Allergies / Home Medications
Allergy/AdvReac Type Severity Reaction Status Date / Time
Penicillins Allergy Intermediate Shortness Verified 04/25/23 22:32
of Breath
Medication Instructions Recorded
buprenorphine HCl 8 mg sublingual 16 mg sublingual DAILY #0 tabs 04/24/23
tablet
acetaminophen 325 mg tablet 650 mg PO BIDPRN PRN Mild Pain / 04/25/23
Temp > 101
cephalexin 500 mg capsule 500 mg PO TID 04/25/23
ondansetron 4 mg disintegrating 4 mg PO TIDPRN PRN nausea/vomiting 04/25/23
tablet
Review of Systems
-
History Source: Patient
Constitutional: Reports No Symptoms
EENT: Reports No Symptoms
Respiratory: Reports No Symptoms
Cardiac: Reports Syncope
Abdomen/GI: Reports Abdominal Pain
: Reports No Symptoms
Musculoskeletal: Reports No Symptoms
Skin: Reports No Symptoms
Neurological: Reports No Symptoms
Vital Signs
Temp Pulse Resp BP Pulse Ox
99.4 F 88 19 152/92 95
04/26/23 04:04 04/26/23 06:30 04/26/23 06:30 04/26/23 06:00 04/26/23 06:30
Physical Exam
Exam
General: Well Developed and No Apparent Distress
HEENT: Normocephalic, Anicteric and Atraumatic
Respiratory: Clear
Cardiac: S1/S2 and Regular Rhythm
GI: Soft, Non Distended, Normal Bowel Sounds and Tender (throughout abdomen)
Rectal: Deferred by Provider and Other (brown heme negative per ER documentation)
Musculoskeletal: No Edema
Skin: Warm and Dry
Neuro: Awake, Alert and Oriented
Psych: Calm
Results
WBC 21.1 10^3/uL (4.8-10.8) H 04/26/23 06:14
Hgb 7.4 g/dL (13.0-18.0) L 04/26/23 06:14
Hct 21.6 % (39.0-52.0) L 04/26/23 06:14
MCV 82.8 fL (80.0-94.0) 04/26/23 06:14
Plt Count 304 10^3/uL (130-400) 04/26/23 06:14
Absolute Neuts (auto) 15.0 10^3/uL (1.4-6.5) H 04/26/23 06:14
Sodium 132 mmol/L (135-145) L 04/26/23 06:14
Potassium 3.8 mmol/L (3.5-5.1) 04/26/23 06:14
Chloride 103 mmol/L (98-107) 04/26/23 06:14
Carbon Dioxide 24 mmol/L (22-30) 04/26/23 06:14
BUN 20 mg/dl (9-20) 04/26/23 06:14
Creatinine 0.6 mg/dL (0.7-1.3) L 04/26/23 06:14
Calcium 8.1 mg/dl (8.4-10.2) L 04/26/23 06:14
Total Bilirubin 0.5 mg/dl (0.2-1.3) 04/26/23 06:14
AST 31 U/L (17-59) 04/26/23 06:14
ALT 41 U/L (0-50) 04/26/23 06:14
Alkaline Phosphatase 97 U/L (38-126) 04/26/23 06:14
Diagnostic Image Results:
04/25/22 CT A/P w/o IV contrast: 'Thickened and inflamed appearance of the proximal duodenum with adjacent fat stranding which extends in close proximity to the pancreatic head. Small amount of hyperdense material seen within the third and fourth
portion of the duodenum, possibly representing blood products. Findings concerning for duodenitis/peptic ulcer disease versus less likely pancreatitis. Correlation with serum lipase recommended. No evidence for pneumoperitoneum.'
Prior GI Procedures:
EGD: several years ago for ?erosive esophagitis per pt. (report not available to me)
Colonoscopy: none
Assessment / Plan
-
The pt is a 37 yo incarcerated male with a PMH significant for recent admission and treatment for right LE cellulitis on Keflex, substance abuse (snorts heroin) who presented to the ER with recurrent episodes of syncope. We are being asked to
evaluate for anemia and gastritis. Reportedly with 3 episodes of syncope at the longterm, found to have significant anemia with a 2 g drop of hemoglobin. No active signs of bleeding and negative rectal exam. CT findings concerning for duodenitis
versus peptic ulcer disease versus pancreatitis. He was placed on PPI drip and made NPO. History of snorting heroin of 8 bags per day. No use of NSAIDs or blood thinners. Cardiology consult pending for prolonged QTc and syncope workup. ID also
following for management of cellulitis.
Problem list:
-normocytic anemia
-abdominal pain
-Ct findings showing ?duodenitis v PUD v pancreatitis
-syncope x3 episodes
-prolonged QTc
-hx substance abuse, drug screen + fentanyl, buprenorphine
-hypokalemia, resolved
-RLE cellulitis, on cephalexin prior to admission
-Leukocytosis
Recommendations:
-Etiology of current symptoms/CT findings possibly related to gastritis versus pancreatitis versus peptic ulcer disease versus duodenitis versus other. No recent NSAIDs or use of blood thinners
-Anemia possibly secondary to acute blood loss although heme-negative stool in the emergency room and no active signs of bleeding. He is also hemodynamically stable with no active signs of withdrawal at this time.
-With prior history of reported erosive esophagitis and anemia would pursue EGD for further evaluation pending cardiac clearance. The patient is agreeable to this plan. Timing to be determined by Dr. Crespo
-Keep n.p.o.
-Also possibility of pancreatitis, will check lipase and amylase
-Continue PPI drip
-Trend H&H and transfuse for hgb less than 7
-Monitor for signs of bleeding
-Add iron studies
-Will follow
-
-
Thank you for consultation and allowing me to participate in the patient's care. Please call the production operations inspector GI physician during the after hours with any questions or concerns.
--- NOTE | 2023-04-26 08:30 | PTCARENOTE ---
Received pt with his eyes closed. 2 guards are present in the room and the pt's left ankle is shackled to the bed. He opened his eyes to verbal and tactile stimulation. He is pleasant and cooperative. Skin is moist, pale. He denies nausea. He
appears lethargic. Left wrist #24g protective catheter with 0.9nss @80ml/hr and Protonix 8mg/hr. Right foot #22g protective catheter flushed and patent. Good peripheral pulses. Trace L/E edema. Right FA with bruising and hematoma. Lungs posteriorly
diminished, poor inspiratory effort. He was encouraged to take a deep breath. Voided large amount of clear yellow urine. He was informed of the plan of care. He verbalized his understanding.
--- NOTE | 2023-04-26 08:44 | W.PN.HOSP.TC ---
Today's Communication/Plan
-
Protonix drip, IV iron infusion, restart Suboxone.
Assessment / Plan
Assessment / Plan
Physical exam:
General: Well Developed, Well Nourished and No Apparent Distress
HEENT: Normocephalic, Atraumatic and Moist Mucous Membranes
Respiratory: Clear to Auscultation; Negative Wheezes, Rales or Rhonchi
Cardiac: Regular Rhythm and S1/S2
GI: Soft, Nontender and Nondistended
Musculoskeletal: No Clubbing, No Cyanosis and No Edema
Neuro: Awake, Alert and Oriented
Psych: Calm
A/P:
SIRS/Leukocytosis:
-Doubt infectious etiology, probably withdrawal related but wait for cultures to finalize. Recent cellulitis(RLE).
-WBC 23.7--> 21.1 (15.7 upon discharge on 04/24)
-Agree with stopping antibiotics and monitor
-Blood cultures pending, urinalysis negative, chest x-ray unremarkable, CT of the abdomen ? PUD findings
-ID consult appreciated
-Mildly increased lactate back to normal 0.7
-Mildly elevated ESR
Syncope/prolonged QTc:
-No Zofran or any medications that can prolong QTc
-Cardiology consulted
-Continue cardiac monitoring
-Repeat twelve-lead EKG in 24 to 48 hours.
Iron deficiency anemia:
-Recent substrates indicative of iron deficiency
-Hemoglobin 11.1--> 8.9--> 7.4
-Continue to monitor hemoglobin
-Start IV iron
-Continue PPI
Abnormal CT scan of the abdomen, concerning for PUD and pancreatitis:
-More likely esophagitis/gastritis but cannot rule out PUD completely. Heme stool test negative.
-GI consulted--> possible endoscopy by GI
-N.p.o.
-On Protonix drip
-Lipase pending
-Monitor hemoglobin
Polysubstance abuse disorder/Opioid withdrawal:
-Resume Subutex today-->start 16 mg since that's what he was receiving as of late but we should aim to taper down to 6 mg since that was his OP regimen.
-Continue IV fluids
-Monitor COWS
-Urine toxicology positive fentanyl and buprenorphine as expected.
Hyponatremia:
-Sodium 133-->132 today
DVT prophylaxis:
Heparin SQ
CODE STATUS:
Full code
Total time spent on today's encounter was 52 minutes which included time spent in counseling the patient/family regarding diagnosis and treatment plan as listed above, goals of care, and symptom management. Case was discussed with nursing staff,
specialists, and care coordinators/case management. All labs and imaging personally reviewed by me. Remainder the time spent in detailed review of previous records, lab data, imaging, and other medical provider documentation.
Anticipated Discharge: > 48 hours
Subjective/Interval History
-
Date of Service: April 26, 2023
Patient uncomfortable prior to my visit but by the time of my evaluation he had been started on Suboxone and feeling better. Denies abdominal pain or vomiting.
Objective Data
-
Labs:
Laboratory Results
04/25/23 04/26/23
22:06 06:14
WBC 23.7 H 21.1 H
Hgb 8.9 L 7.4 L
Hct 25.9 L 21.6 L
Plt Count 333 304
Sodium 133 L 132 L
Potassium 3.3 L 3.8
Chloride 96 L 103
Carbon Dioxide 27 24
BUN 34 H 20
Creatinine 0.7 0.6 L
Glucose 96 100 H
Calcium 8.9 8.1 L
Total Bilirubin 0.4 0.5
AST 39 31
ALT 48 41
Alkaline Phosphatase 83 97
Vital Signs:
Vital Signs
Temp Pulse Resp BP Pulse Ox
99.4 F 88 19 152/92 95
04/26/23 04:04 04/26/23 06:30 04/26/23 06:30 04/26/23 06:00 04/26/23 06:30
I&O
04/25/23 04/26/23 04/27/23
06:59 06:59 06:59
Intake Total 610 / 610
Output Total 1200 / 1200
Balance -590 / -590
--- NOTE | 2023-04-26 09:00 | PTCARENOTE ---
EKG performed then orthostatic V.S. Upon standing he swayed, his chin was on his chest. He was instructed to lift his head up. He was able to complete without any syncope. Partial CHG bath given, he was able to wash his front and private parts and
hands. Bed linen changed due to dampness. He was informed that he may possible go for an endoscopy to visualize his esophagus and stomach. He is also aware of what the purpose of the Protonix drip is for. He verbalized his understanding. He asked
'am I dying?'. He was provided supportive care and reassured. He was informed that only continued substance abuse will eventually lead to his demise. Will continue to monitor. Safe environment maintained. Dr. Ramirez informed of recent QT interval of
493 and asked if Suboxone could be restarted.
[2023-04-26 09:48] LABS: Amylase 61 U/L (30-110); Lipase 175 U/L (23-300)
[2023-04-26] MEDS: STERILE WATER FOR INJECTION IV ×3 (10:06→22:13)
[2023-04-26] MEDS: HEPARIN 5000 UNITS SC ×2 (10:10→19:24)
[2023-04-26] MEDS: SUBUTEX 16 MG SL (10:10)
--- NOTE | 2023-04-26 10:45 | CM ---
CM following re: discharge planning.
Reviewed pt;s chart, met with pt and 2 guards at bedside.
Pt is a 37 year old male, admitted with primary dx of recurrent episodes of syncope.
Pt admitted from [facility], 2 guards at bedside and per guards pt will return back to [facility] when medically stable.
[facility] Nurse at [phone],
Discharge instructions fax: fax [phone].
D/C plan: return back to [facility]. Guards to transport.
CM will follow with discharge plan updates as hospitalization progresses
--- NOTE | 2023-04-26 13:40 | TRANSFER ---
Report called to [facility] for pt going to room 423. He is aware pt will be arriving from GI lab post procedure. Has Protonix @8mg/hr infusing and 0.9nss@80ml/hr via right wrist 22g protective catheter. He had just voided 300ml's clear yellow
urine, and had also brushed his teeth. 2 [facility] guards will accompany pt, he remains shackled to the bed.
--- NOTE | 2023-04-26 14:07 | TRANSFER ---
Updated report to [facility] for pt going to room 423. Per GI report IVF and Protonix capped and will take PO. Pt may eat at this point. Selina from [facility] provided update.
[2023-04-26] MEDS: FERRLECIT 110 MG IV (14:29)
--- NOTE | 2023-04-26 14:56 | CON.MD ---
Consultation - Medical
-
patient seen chart reviewed. patient is a 37 year old male w hx opiate addiction. here for syncope and workup of anemia. he was just discharged from after rx of cellulitis. he has hx of years of opiate use...fentanyl once weekly he says.
currently on 16 mg suboxone started in care home about a week or so ago. he denies any hx of psych illness. he says he is not depressed. he is stressed by the terminal illnesses of both parents mom w brain ca and dad w pancreatic. he denies issues w
appetite and sleep. he can enjoy some activities. energy level is okay when he is sober. there is nothing to suggest psychosis. he is not suicidal and says he has never come close to using opiates
past psych hx none
medical currently being workup up for anemia. just had egd today. recent cellulits.
substance abuse see above denies other use or abuse tox + fentanyl and bupernorphine which is as expected
fh denied
social hx parents dying no sibs has one son age nine lives w his mom patient works as a page in [employer]
mse alert ox3 cooperative speech and thought process normal no psychosis not suicidal affect ok mood neutral he did have a sense of humor aver intelligence insight judgment lacking
dx opiate use disorder unspec
plan continue w buprenorphine as ordered and cows patient denying sx requiring other psychotropics patient should seek rx when finished w legal system. psych will sign off
[2023-04-26 16:19] LABS: Iron 70 ug/dl (49-181)
[2023-04-26 16:34] LABS: Hemoglobin 7.1 g/dL (13.0-18.0)
[2023-04-26 16:36] LABS: Hematocrit 20.5 % (39.0-52.0)
[2023-04-26 17:17] LABS: Ferritin 67.1 ng/ml (17.9-464.0)
[2023-04-26] MEDS: CARAFATE 1 GRAM PO ×2 (17:23→21:22)
[2023-04-26 17:48] LABS: Folate 18.3 ng/ml (2.76-20); Vitamin B12 357 pg/ml (239-931)
[2023-04-26] MEDS: NSS (PRESERVATIVE FREE) 10 ML IV (19:24)
[2023-04-26] MEDS: PROTONIX IV 40 MG IV (19:24)
[2023-04-27 03:40] VITALS: BP 149/85
[2023-04-27] MEDS: NSS 1000 IV (05:39)
[2023-04-27 07:10] VITALS: BP 137/83
--- NOTE | 2023-04-27 07:42 | W.PN.CD ---
Today's Communication / Plan
-
-Appears to be clinically stable from a cardiac standpoint; no events on telemetry.
-Echocardiogram was unremarkable.
-No further recommendations from a cardiology standpoint at this time.
Impression / Plan
-
Recurrent syncope; prolonged QTc noted on EKG:
-On Buprenorphine, he is currently on 16 mg daily at his correctional facility.
-Recurrent syncope may have been secondary to heroin use.
-Avoid ondansetron.
-Appears to be clinically stable from a cardiac standpoint; no events on telemetry.
-Echocardiogram was unremarkable.
-No further recommendations from a Cardiology standpoint at this time.
Concern for SIRS
-Elevated lactate, leukocytosis, elevated CRP with recent cellulitis
-ID following
Anemia, CT with concern for duodenitis/PUD, GI following
Substance abuse disorder, heroin, on Buprenorphine-management as per primary team.
Physical Exam
Vital Signs/Labs
Vital Signs
Temp Pulse Resp BP Pulse Ox
98.9 F 94 16 149/85 97
04/27/23 03:40 04/27/23 03:40 04/27/23 03:40 04/27/23 03:40 04/27/23 03:40
04/26/23 04/27/23 04/28/23
06:59 06:59 06:59
Actual Weight 111.2 kg
LAB Results
04/25/23
22:06
Troponin I 0.029
Physical Exam
Constitutional: No acute distress and Comfortable
EENT: Anicteric
Cardiovascular: Rhythm & rate is regular, Pedal edema is absent, Systolic murmur absent and S1S2 is normal
Respiratory: Respiratory effort normal and Lungs clear to auscul.
GI: Soft
Neuro/Psych: AO x 3
Other: Skin (Warm, dry, intact)
Data Reviewed
-
Date of Service: April 27, 2023
EKG: Tracing Personally Visualized and interpreted (Telemetry: Sinus rhythm; no events.)
Labs: Labs Reviewed by me
--- NOTE | 2023-04-27 07:56 | W.PN.HOSP.TC ---
Today's Communication/Plan
-
Continue IV iron infusions, continue IV Protonix.
Assessment / Plan
Assessment / Plan
Physical exam:
General: Well Developed, Well Nourished and No Apparent Distress
HEENT: Normocephalic, Atraumatic and Moist Mucous Membranes
Respiratory: Clear to Auscultation; Negative Wheezes, Rales or Rhonchi
Cardiac: Regular Rhythm and S1/S2
GI: Soft, Nontender and Nondistended
Musculoskeletal: No Clubbing, No Cyanosis and No Edema
Neuro: Awake, Alert and Oriented
Psych: Calm
A/P:
SIRS/Leukocytosis:
-Doubt infectious etiology, probably withdrawal related but wait for cultures to finalize. Recent cellulitis(RLE).
-WBC 23.7--> 21.1--> 13.4 (15.7 upon discharge on 04/24)
-Agree with continue holding off on antibiotics and monitor
-Blood cultures no growth so far, urinalysis negative, chest x-ray unremarkable, CT of the abdomen ? PUD findings
-ID consult appreciated
-Mildly increased lactate back to normal 0.7
-Mildly elevated ESR
Syncope/prolonged QTc:
-No Zofran or any medications that can prolong QTc
-Cardiology consulted
-Cardiology signing off
-QTc coming down to 482
-Discontinue telemetry monitoring
Iron deficiency anemia:
-Recent substrates indicative of iron deficiency
-Hemoglobin 11.1--> 8.9--> 7.4-->7.1
-Continue to monitor hemoglobin
-Cont IV iron
-Continue PPI
-Continue to monitor hemoglobin and will decide if needs blood transfusion continue IV iron infusion over the next 24 to 48 hours.
Esophagitis/gastritis:
-EGD LA grade B esophagitis with no bleeding and erythematous mucosa in the gastric fundus nonbleeding duodenal ulcers. GI recommends to continue Protonix 40 mg twice a day, sucralfate 1 g twice a day, perform H. pylori test in the stools and
repeat upper endoscopy in 3 months.
-Appreciated GI consult
Polysubstance abuse disorder/Opioid withdrawal:
-Resume Subutex today--> continue 16 mg since that's what he was receiving as of late but we should aim to taper down to 6 mg since that was his OP regimen--> will titrate down over the next 24 hours and reevaluate.
-Stop IV fluids
-Monitor COWS
-Urine toxicology positive fentanyl and buprenorphine as expected.
Hyponatremia:
-Sodium 134 today
DVT prophylaxis:
Heparin SQ
CODE STATUS:
Full code
Anticipated Discharge: > 48 hours
Subjective/Interval History
-
Date of Service: April 27, 2023
Patient feels better overall. No chest pain or shortness of breath. No abdominal pain.
Objective Data
-
Labs:
Laboratory Results
04/27/23
07:43
WBC Pending
Hgb Pending
Hct Pending
Plt Count Pending
Sodium Pending
Potassium Pending
Chloride Pending
Carbon Dioxide Pending
BUN Pending
Creatinine Pending
Glucose Pending
Calcium Pending
Vital Signs:
Vital Signs
Temp Pulse Resp BP Pulse Ox
98.9 F 94 16 149/85 97
04/27/23 03:40 04/27/23 03:40 04/27/23 03:40 04/27/23 03:40 04/27/23 03:40
I&O
04/26/23 04/27/23 04/28/23
06:59 06:59 06:59
Intake Total 610 / 700 2660 / 2660
Output Total 1200 / 1200 4425 / 4425
Balance -590 / -500 -1765 / -1765
Review of Systems
-
All other systems: Reviewed and negative
[2023-04-27] MEDS: PROTONIX IV 40 MG IV ×2 (08:12→20:29)
[2023-04-27] MEDS: STERILE WATER FOR INJECTION IV ×2 (08:13→14:36)
[2023-04-27] MEDS: HEPARIN 5000 UNITS SC ×2 (08:13→20:29)
[2023-04-27] MEDS: NSS (PRESERVATIVE FREE) 10 ML IV ×2 (08:13→20:29)
[2023-04-27] MEDS: SUBUTEX 16 MG SL (08:13)
[2023-04-27] MEDS: CARAFATE 1 GRAM PO ×4 (08:13→21:56)
[2023-04-27 09:04] LABS: % Basophils 0.4 % (0-2); % Eosinophils 0.5 % (0-6); % Immature Granulocytes 1.2 % (0-0.5); % Lymphocytes 23.8 % (20.5-51.1); % Monocytes 9.7 % (1.7-9.3); % Neutrophils 64.4 % (42.2-75.2); Absolute Basophils 0.1 10^3/uL (0-0.2); Absolute Eosinophils 0.1 10^3/uL (0-0.7); Absolute Immature Granulocytes 0.2 10^3/uL (0-0.05); Absolute Lymphocytes 3.2 10^3/uL (1.2-3.4); Absolute Monocytes 1.3 10^3/uL (0.1-0.6); Absolute Neutrophils 8.6 10^3/uL (1.4-6.5); Hematocrit 21.3 % (39.0-52.0); Hemoglobin 7.1 g/dL (13.0-18.0); Mean Corp Hgb Conc. 33.3 g/dL (33.0-37.0); Mean Corpuscular Hgb 28.4 pg (27.0-31.0); Mean Corpuscular Volume 85.2 fL (80.0-94.0); Mean Platelet Volume 10.7 fL (7.4-10.4); Nucleated Red Blood Cells % 0 % (-); Platelet Count 341 10^3/uL (130-400); Red Cell Dist. Width 14.2 % (11.5-14.5); White Blood Cell Count 13.4 10^3/uL (4.8-10.8)
--- NOTE | 2023-04-27 09:15 | W.PN.GI.CBS2 ---
Today's Communication / Plan
-
diet advanced
continue PPI bid
AVoid NSAIDs
Assessment / Plan
-
The pt is a 37 yo incarcerated male with a PMH significant for recent admission and treatment for right LE cellulitis on Keflex, substance abuse (snorts heroin) who presented to the ER with recurrent episodes of syncope. We are being asked to
evaluate for anemia and gastritis. Reportedly with 3 episodes of syncope at the retirement, found to have significant anemia with a 2 g drop of hemoglobin. No active signs of bleeding and negative rectal exam. CT findings concerning for duodenitis
versus peptic ulcer disease versus pancreatitis. He was placed on PPI drip and made NPO. History of snorting heroin of 8 bags per day. No use of NSAIDs or blood thinners. Cardiology consult pending for prolonged QTc and syncope workup. ID also
following for management of cellulitis.
Problem list:
-normocytic anemia
-abdominal pain
-Ct findings showing ?duodenitis v PUD v pancreatitis
-syncope x3 episodes
-prolonged QTc
-hx substance abuse, drug screen + fentanyl, buprenorphine
-hypokalemia, resolved
-RLE cellulitis, on cephalexin prior to admission
-Leukocytosis
-anemia and GIB from multiple DU's
Recommendations:
Endoscopy from yesterday showed multiple nonbleeding duodenal ulcers. He currently has no overt bleeding getting IV iron infusions and if hemoglobin drops further may need blood transfusion also. Continue pantoprazole 40 mg twice daily for 2 to 3
months will also need H. pylori stool antigen if he does have a bowel movement otherwise could do breath test as outpatient and repeat endoscopy in 2 to 3 months to check for healing. Avoid NSAIDs. if hemoglobin remains stable okay to DC later
today or tomorrow morning will advance diet. will sign off and will be available as needed
Subjective
Subjective
Date of Service: April 27, 2023
Is hungry and wants to eat no abdominal pain, no nausea vomiting or hematemesis has not had a bowel movement, no melena or rectal bleeding
Objective
Data Reviewed
Laboratory Data:
Laboratory Results
04/27/23 07:43
Laboratory Results
Total Bilirubin 0.5 mg/dl (0.2-1.3) 04/26/23 06:14
AST 31 U/L (17-59) 04/26/23 06:14
ALT 41 U/L (0-50) 04/26/23 06:14
Alkaline Phosphatase 97 U/L (38-126) 04/26/23 06:14
Amylase 61 U/L (30-110) 04/26/23 06:14
Lipase Cancelled 04/26/23 08:42
Vital Signs and I&O:
Vital Signs
Temp Pulse Resp BP Pulse Ox
98.5 F 106 16 137/83 97
04/27/23 07:10 04/27/23 07:10 04/27/23 07:10 04/27/23 07:10 04/27/23 07:10
I&O
04/26/23 04/27/23 04/28/23
06:59 06:59 06:59
Intake Total 610 / 700 2660 / 2660
Output Total 1200 / 1200 4425 / 4425
Balance -590 / -500 -1765 / -1765
Physical Exam
Physical Exam
Cardiology: Normal Sinus Rhythm
Pulmonary: Clear
GI: Soft, Non Distended, Non Tender and Normal Bowel Sounds
[2023-04-27 09:35] LABS: Blood Urea Nitrogen 9 mg/dl (9-20); Calcium 8.5 mg/dl (8.4-10.2); Carbon Dioxide 30 mmol/L (22-30); Chloride 102 mmol/L (98-107); Estimated Creatinine Clearance > 125 ml/min; Glucose 85 mg/dl (70-99); Potassium 3.7 mmol/L (3.5-5.1); Sodium 134 mmol/L (135-145); eGFR > 60.00
--- NOTE | 2023-04-27 10:11 | W.PN.ID1 ---
Date of Service
Date of Service: April 27, 2023
Today's Communication
Observe off abx.
Assessment / Plan
SIRS - resolved
Leukocytosis - suspecting reactive trending down
Allergy to penicillin - shortness of breath
IVDU with h/o withdrawal
- if patient had cellulitis last week it has now resolved
- second set of blood cultures pending
- ua negative
- CXR unremarkable, CT a/p - possible PUD, less likely pancreatitis
- lipase normal
- procalcitonin negative
- observe off abx.
Subjective / Review of Systems
No complaints
Vital Signs / Physical Exam
Vital Signs
Vital Signs
Temp Pulse Resp BP Pulse Ox
98.5 F 106 16 137/83 97
04/27/23 07:10 04/27/23 07:10 04/27/23 07:10 04/27/23 07:10 04/27/23 08:00
Physical Exam
Constitutional: No Acute Distress
Gastrointestinal: Soft, Non Tender and Non Distended
Extremities: Negative Edema or Erythema
Objective Data
Lab Data
Lab Results
04/27/23 07:43
04/27/23 07:43
ESR Cancelled 04/25/23 22:35
Estimated Creat Clear > 125 ml/min 04/27/23 07:43
Lactic Acid Cancelled 04/26/23 13:20
Total Bilirubin 0.5 mg/dl (0.2-1.3) 04/26/23 06:14
AST 31 U/L (17-59) 04/26/23 06:14
ALT 41 U/L (0-50) 04/26/23 06:14
Alkaline Phosphatase 97 U/L (38-126) 04/26/23 06:14
C-Reactive Protein Cancelled 04/25/23 22:35
Amylase 61 U/L (30-110) 04/26/23 06:14
Most recent labs reviewed.
Micro Results:
04/25/23 22:55 Blood Culture - Preliminary
Blood/Venous No Growth in 24 hours- Final report to follow
04/26/23 16:24 Blood Culture - Pending
Blood/Venous
[2023-04-27] MEDS: FERRLECIT 110 MG IV (14:11)
[2023-04-27 15:10] VITALS: BP 141/82
[2023-04-27 20:11] VITALS: BP 120/79; BP 121/74; PULSE 102; PULSE 93
[2023-04-27 23:20] VITALS: BP 141/80
[2023-04-28] MEDS: STERILE WATER FOR INJECTION IV ×3 (01:40→15:20)
[2023-04-28 07:05] VITALS: BP 139/78
[2023-04-28] MEDS: SUBUTEX 16 MG SL (07:54)
[2023-04-28] MEDS: CARAFATE 1 GRAM PO ×4 (07:54→22:23)
[2023-04-28] MEDS: HEPARIN 5000 UNITS SC ×2 (07:55→20:02)
[2023-04-28] MEDS: PROTONIX IV 40 MG IV ×2 (07:56→20:04)
[2023-04-28] MEDS: NSS (PRESERVATIVE FREE) 10 ML IV ×2 (07:56→20:05)
[2023-04-28 08:05] LABS: Hematocrit 21.8 % (39.0-52.0); Hemoglobin 7.3 g/dL (13.0-18.0); Mean Corp Hgb Conc. 33.5 g/dL (33.0-37.0); Mean Corpuscular Hgb 28.1 pg (27.0-31.0); Mean Corpuscular Volume 83.8 fL (80.0-94.0); Mean Platelet Volume 10.1 fL (7.4-10.4); Platelet Count 394 10^3/uL (130-400); Red Cell Dist. Width 14.6 % (11.5-14.5); White Blood Cell Count 9.6 10^3/uL (4.8-10.8)
[2023-04-28 08:19] LABS: Blood Urea Nitrogen 12 mg/dl (9-20); Calcium 8.9 mg/dl (8.4-10.2); Carbon Dioxide 31 mmol/L (22-30); Chloride 100 mmol/L (98-107); Estimated Creatinine Clearance > 125 ml/min; Glucose 96 mg/dl (70-99); Potassium 3.6 mmol/L (3.5-5.1); Sodium 135 mmol/L (135-145); eGFR > 60.00
[2023-04-28 12:11] VITALS: BP 137/86; BP 141/82; BP 142/83; PULSE 144; PULSE 90; PULSE 93
--- NOTE | 2023-04-28 12:54 | W.PN.HOSP.TC ---
Today's Communication/Plan
-
Continue PPI, decrease Suboxone, monitor hemoglobin. Discharge planning in progress
Assessment / Plan
Assessment / Plan
Physical exam:
General: Well Developed, Well Nourished and No Apparent Distress
HEENT: Normocephalic, Atraumatic and Moist Mucous Membranes
Respiratory: Clear to Auscultation; Negative Wheezes, Rales or Rhonchi
Cardiac: Regular Rhythm and S1/S2
GI: Soft, Nontender and Nondistended
Musculoskeletal: No Clubbing, No Cyanosis and No Edema
Neuro: Awake, Alert and Oriented
Psych: Calm
A/P:
SIRS/Leukocytosis:
-Doubt infectious etiology, probably withdrawal related but wait for cultures to finalize. Recent cellulitis(RLE).
-WBC 23.7--> 21.1--> 13.4 (15.7 upon discharge on 04/24)
-Agree with continue holding off on antibiotics and monitor
-Blood cultures no growth so far, urinalysis negative, chest x-ray unremarkable, CT of the abdomen ? PUD findings
-ID consult appreciated
-Mildly increased lactate back to normal 0.7
-Mildly elevated ESR
Syncope/prolonged QTc:
-No Zofran or any medications that can prolong QTc
-Cardiology consulted
-Cardiology signing off
-QTc coming down to 482
-Discontinue telemetry monitoring
Iron deficiency anemia:
-Recent substrates indicative of iron deficiency
-Hemoglobin 11.1--> 8.9--> 7.4-->7.1-->7.3
-Continue to monitor hemoglobin and if he remains stable with IV iron infusions then possible discharge tomorrow
-Cont IV iron
-Continue PPI
-Continue to monitor hemoglobin and will decide if needs blood transfusion or continue IV iron infusion over the next 24 hours.
Esophagitis/gastritis:
-EGD LA grade B esophagitis with no bleeding and erythematous mucosa in the gastric fundus nonbleeding duodenal ulcers. GI recommends to continue Protonix 40 mg twice a day, sucralfate 1 g twice a day, perform H. pylori test in the stools and
repeat upper endoscopy in 3 months.
-Appreciated GI consult
Polysubstance abuse disorder/Opioid withdrawal:
-Resume Subutex today--> continue 16 mg since that's what he was receiving as of late but we should aim to taper down to 6 mg since that was his OP regimen--> will titrate down to 6 mg today and see if he tolerates.
-His PMD review:PDMP last fill of buprenorphine 6mg daily on 04/16. Before that 08/2022 buprenorphine 16mg daily. Looks like pt did not have it filled for 6 months between the dosage change.
-Off IV fluids
-Monitor COWS
-Urine toxicology positive fentanyl and buprenorphine as expected.
Hyponatremia:
-Sodium 135 today
DVT prophylaxis:
Heparin SQ
CODE STATUS:
Full code
Anticipated Discharge: Within 24 hours
Subjective/Interval History
-
Date of Service: April 28, 2023
Patient denies abdominal pain nausea or vomiting. No melena or hematemesis. No actively withdrawing.
Objective Data
-
Labs:
Laboratory Results
04/28/23
07:42
WBC 9.6
Hgb 7.3 L
Hct 21.8 L
Plt Count 394
Sodium 135
Potassium 3.6
Chloride 100
Carbon Dioxide 31 H
BUN 12
Creatinine 0.8
Glucose 96
Calcium 8.9
Vital Signs:
Vital Signs
Temp Pulse Resp BP Pulse Ox
98.8 F 102 18 139/78 98
04/28/23 07:05 04/28/23 07:05 04/28/23 07:05 04/28/23 07:05 04/28/23 07:05
I&O
04/27/23 04/28/23 04/29/23
06:59 06:59 06:59
Intake Total 2660 / 2660 1710 / 1710
Output Total 4425 / 4425 1974
Balance -1765 / -1765 -265 / -265
[2023-04-28] MEDS: FERRLECIT 110 MG IV (13:21)
[2023-04-28 15:10] VITALS: BP 133/76
--- NOTE | 2023-04-28 16:01 | CM ---
Plan: back to [facility] when stable.
[facility] Nurse # [phone],
.
[2023-04-28 23:15] VITALS: BP 125/75; BP 141/87; PULSE 104; PULSE 98
[2023-04-28 23:17] VITALS: BP 125/75
[2023-04-29] MEDS: STERILE WATER FOR INJECTION IV ×2 (04:30→10:00)
[2023-04-29 07:25] VITALS: BP 121/72
--- NOTE | 2023-04-29 07:43 | W.PN.HOSP.TC ---
Today's Communication/Plan
-
Continue current management. Discharge planning today.
Assessment / Plan
Assessment / Plan
Physical exam:
General: Well Developed, Well Nourished and No Apparent Distress
HEENT: Normocephalic, Atraumatic and Moist Mucous Membranes
Respiratory: Clear to Auscultation; Negative Wheezes, Rales or Rhonchi
Cardiac: Regular Rhythm and S1/S2
GI: Soft, Nontender and Nondistended
Musculoskeletal: No Clubbing, No Cyanosis and No Edema
Neuro: Awake, Alert and Oriented
Psych: Calm
A/P:
SIRS/Leukocytosis:
-Doubt infectious etiology, probably withdrawal related but wait for cultures to finalize. Recent cellulitis(RLE).
-WBC 23.7--> 21.1--> 13.4 (15.7 upon discharge on 04/24)
-Agree with continue holding off on antibiotics and monitor
-Blood cultures no growth so far, urinalysis negative, chest x-ray unremarkable, CT of the abdomen ? PUD findings
-ID consult appreciated
-Mildly increased lactate back to normal 0.7
-Mildly elevated ESR
Syncope/prolonged QTc:
-No Zofran or any medications that can prolong QTc
-Cardiology consulted
-Cardiology signing off
-QTc coming down to 482
-Discontinue telemetry monitoring
Iron deficiency anemia:
-Recent substrates indicative of iron deficiency
-Hemoglobin 11.1--> 8.9--> 7.4-->7.1-->7.3--> 7.9 today
-Finish course of IV iron infusions today
-Cont IV iron
-Continue PPI
-No need for blood transfusions
Esophagitis/gastritis:
-EGD LA grade B esophagitis with no bleeding and erythematous mucosa in the gastric fundus nonbleeding duodenal ulcers. GI recommends to continue Protonix 40 mg twice a day, sucralfate 1 g twice a day, perform H. pylori test in the stools and
repeat upper endoscopy in 3 months.
-Appreciated GI consult
Polysubstance abuse disorder/Opioid withdrawal:
-Resume Subutex today--> continue 16 mg since that's what he was receiving as of late but we should aim to taper down to 6 mg since that was his OP regimen--> will titrate down to 6 mg today and see if he tolerates.
-His PMD review:PDMP last fill of buprenorphine 6mg daily on 04/16. Before that 08/2022 buprenorphine 16mg daily. Looks like pt did not have it filled for 6 months between the dosage change.
-Off IV fluids
-Monitor COWS
-Urine toxicology positive fentanyl and buprenorphine as expected.
Hyponatremia:
-Sodium 135 today
DVT prophylaxis:
Heparin SQ
CODE STATUS:
Full code
Anticipated Discharge: Today
Subjective/Interval History
-
Date of Service: April 29, 2023
Patient denies any chest pain or shortness of breath. No nausea vomiting or diarrhea. Afebrile
Objective Data
-
Labs:
Laboratory Results
04/29/23
07:39
Hgb Pending
Hct Pending
Vital Signs:
Vital Signs
Temp Pulse Resp BP Pulse Ox
98.3 F 92 20 127/70 96
04/29/23 07:25 04/29/23 07:25 04/29/23 07:25 04/29/23 07:25 04/29/23 07:25
I&O
04/28/23 04/29/23 04/30/23
06:59 06:59 06:59
Intake Total 1710 / 1710 2990 / 2990
Output Total 1974 / 1974 2700 / 2700 300 / 300
Balance -265 / -265 290 / 290 -300 / -300
[2023-04-29 08:13] LABS: Hematocrit 24.2 % (39.0-52.0); Hemoglobin 7.9 g/dL (13.0-18.0)
[2023-04-29] MEDS: SUBUTEX 6 MG SL (08:36)
[2023-04-29] MEDS: CARAFATE 1 GRAM PO (08:36)
[2023-04-29] MEDS: HEPARIN 5000 UNITS SC (08:38)
[2023-04-29] MEDS: PROTONIX IV 40 MG IV (08:38)
[2023-04-29] MEDS: NSS (PRESERVATIVE FREE) 10 ML IV (08:39)
--- NOTE | 2023-04-29 10:12 | W.DCSUMMARY ---
Discharge Summary
Discharge Data
Date of Admission: 04/25/23
Date of Discharge: 04/29/23
-
Pending Results: No
Hospital Course
Patient 37 years old with history of polysubstance abuse on Suboxone, recent admission for right lower extremity cellulitis, esophagitis in the past, came in from [facility] with recurrent of syncope and SIRS. Initially
there was concern for sepsis but this was ruled out with negative blood cultures and SIRS likely noninfectious in etiology related to withdrawal and anemia. Cardiology, GI, psychiatry, ID evaluated the patient. Cardiology recommended not to use
any medications that can prolong QT such as Zofran and came with EF more than 75% and no valvular disease and normal right ventricular size and function, and no regional wall motion abnormalities. ID recommended discontinue antibiotic and blood
cultures remain no growth and WBC went back down to normal from 23.7 down to 9.6. Psychiatry recommended continue with supportive care and his Suboxone. We were able to decrease Suboxone dose to his prior doses from several months ago and he has
been tolerating that well during this hospital stay. GI evaluated patient and did an upper endoscopy that showed esophagitis and gastritis. He was started on PPI and Carafate and to be continued. For his anemia he was given IV iron infusions and
his hemoglobin has remained stable and his last hemoglobin upon discharge 7.9. We discussed about blood transfusions but he did not require since he doing well with IV iron infusions I will continue with oral iron upon discharge and monitor
hemoglobin as outpatient. No other events were noticed. He will be discharged today.
Discharge duration: 37 minutes
Discharge Plan
-
Patient Disposition: [facility]
Discharge Diagnosis/Procedures: Systemic inflammatory response syndrome, noninfectious etiology likely related to opioid withdrawal and anemia. Syncope. Iron deficiency anemia. Esophagitis and gastritis. Polysubstance abuse disorder with opiate
withdrawal. Hyponatremia. Acute blood loss anemia.
Diet: Low Cholesterol
Activity: As tolerated
Driving Restrictions: As prior to admission
Blood Work: Please PCP to order CBC, BMP within 1 week
Referrals:
[facility] [Family Provider] -
Trever Anderson MD [Active] - in two to four weeks
Nidhi Crespo MD [Active] - in one to two months
Prescriptions:
New
sucralfate 1 gram Tablet
1 g PO ACHS 30 Days Qty: 120 0RF
pantoprazole [Protonix] 40 mg tablet,delayed release (DR/EC)
40 mg PO BID Qty: 60 0RF
ferrous sulfate [iron] 325 mg (65 mg iron) tablet
325 mg PO DAILY Qty: 30 0RF
Continued
acetaminophen 325 mg tablet
650 mg PO BIDPRN PRN (Reason: Mild Pain / Temp > 101)
Changed
buprenorphine HCl 8 mg Tablet, Sublingual
6 mg sublingual DAILY Qty: 0 0RF
Rx Instructions:
wean as appropriate with physician at facility
Discontinued
ondansetron [Zofran ODT] 4 mg Tablet,Disintegrating
4 mg PO TIDPRN PRN (Reason: nausea/vomiting)
cephalexin 500 mg capsule
500 mg PO TID
Discharge Orders:
Discharge Patient (As Directed); Ordered 04/29/23
Ordered By: Olayinka Ramirez
Discharge Date and Time
Discharge Date/Time: 04/29/23 14:09
[2023-04-29] MEDS: CARAFATE PO ×2 (12:36→12:46)
== END 2023-04-29 14:09 | DRG 897 ==
LOC: 4 WEST ACU 23:39
PROVIDERS: Emergency Medicine; Nurse Practitioner Family; ADMITTING PHYSICIAN Internal Medicine; ATTENDING PHYSICIAN Hospitalist; CONSULT PHYSICIAN Internal Medicine Gastroenterology; CONSULT PHYSICIAN Psychiatry & Neurology Psychiatry; EMERGENCY PHYSICIAN Student in an Organized Health Care Education/Training Program; OTHER PHYSICIAN Internal Medicine Cardiovascular Disease; OTHER PHYSICIAN Student in an Organized Health Care Education/Training Program
PROC: 0DJ08ZZ Inspection of Upper Intestinal Tract, Via Natural or Artificial Opening Endoscopic (ICD-10-PCS; 2023-04-26)
DX: F11.23 Opioid dependence with withdrawal (principal); L03.115 Cellulitis of right lower limb; E87.1 Hypo-osmolality and hyponatremia; D62 Acute posthemorrhagic anemia; R65.10 Systemic inflammatory response syndrome (SIRS) of non-infectious origin without acute organ dysfunction; K20.90 Esophagitis, unspecified without bleeding; J40 Bronchitis, not specified as acute or chronic; D50.9 Iron deficiency anemia, unspecified; I95.1 Orthostatic hypotension; I10 Essential (primary) hypertension; E87.6 Hypokalemia; K26.9 Duodenal ulcer, unspecified as acute or chronic, without hemorrhage or perforation; K31.89 Other diseases of stomach and duodenum
CPT/HCPCS: 71046; 74176; 80048; 80053; 80306; 80307; 81003; 82150; 82248; 82607; 82728; 82746; 83540; 83605; 83690; 84145; 84484; 85014; 85018; 85025; 85027; 85652; 86140; 86850; 86900; 86901; 87040; 93005; 93306; 99291; J2916